=== PATIENT | male | born 1965 | race Caucasian/White ===

== ENCOUNTER 2016-10-01 06:21 | Inpatient (IN) | payer MEDICAID ==
[~2016-10-01] VITALS: Ht 177.8 cm; Wt 50.8 kg
[~2016-10-01 06:21] MED LIST: COLACE100 MG PO; FLAGYL500 MG PO; HYDROCHLOROTH12.5 M1 PO; HYDROCODONE-APA1 TAB PO; IBUPROFEN400 MG PO; LEVAQUIN500 MG PO; LEVAQUIN750 MG PO; LISINOPRIL-HCTZ1 T11 PO; MILK OF MAGNESI30 ML PO; NICODERM C1 PATCH .3 TRANSDERM; PHENERGAN25 M1 PO; PROTONIX40 MG PO; ZANAFLEX2 M1 PO; ZESTRIL20 MG PO; ZOFRAN4 MG PO
[2016-10-01] MEDS ORDERED: PERCOCET 10/3251 TA1 PO (07:16)
[2016-10-01] MEDS ORDERED: FLAGYL500 MG PO (07:19)
[2016-10-01] MEDS ORDERED: CLEOCIN HCL300 MG PO (07:19)
[2016-10-01] MEDS ORDERED: VIBRAMYCIN 100100 MG PO (07:20)
[2016-10-01 07:22] VITALS: BP 116/76; BMI 16.1
[2016-10-01 08:04] LABS: CALC OSMOLALITY 275 mosm/kg (275-300); CALCIUM 8.2 mg/dL (8.5-10.1); CARBON DIOXIDE 24.1 mmol/L (21.0-32.0); CHLORIDE - SERUM 104 mmol/L (98-107); CREATININE - SERUM 0.6 mg/dL (0.6-1.3); GLUCOSE 107 mg/dL (74-106); SODIUM 137 mmol/L (136-145); UREA NITROGEN 17 mg/dL (7-18); eGFR NON AFRICAN AMERICAN > 90 mL/min (90-120)
[2016-10-01 08:05] LABS: BASOPHILS 0.3 % (0.0-2.0); EOSINOPHILS 0.8 % (0-7); HEMATOCRIT 27.7 % (42.0-54.0); HEMOGLOBIN 9.4 g/dL (13.5-17.5); IMMATURE GRANULOCYTES 0.8 % (0-5); MCH 34.7 pg (26.0-34.0); MCHC 33.9 g/dL (31.0-37.0); MCV 102.2 fL (80.0-100.0); MEAN PLATELET VOLUME 9.6 fL (7.4-10.4); MONOCYTES 9.5 % (2-11); NEUTROPHILS 79.6 % (40-80); PLATELET COUNT 328 10x3/uL (130-400); RBC 2.71 10x6/uL (4.20-6.10); RDW 22.1 % (11.5-14.5); WBC 21.5 10x3/uL (4.8-10.8)
[2016-10-01 08:09] LABS: INR 1.21 (0.85-1.17); PROTIME 15.2 SECONDS (11.6-15.0)
[2016-10-01 08:10] LABS: APTT 32.8 SECONDS (22.8-39.4)
[2016-10-01 15:21] VITALS: BP 119/79
--- NOTE | 2016-10-01 15:30 | NUR ---
PT RECIEVED TO ROOM 2236 FROM RECOVERY ROOM AROUSES TO VERBAL STIMULI HAS TREVOR DRAIN X 2 NOTED TO ABDOMEN WELL IR DRAIN TO COCCYX/HIP LEFT HIP. LUNGS CLEAR BILATERALLY NO BOWEL SOUNDS NOTED AT THIS TIME HAS STOMA TO MIDLINE WITH BAG IN PLACE. VS WNL
[2016-10-01 15:48] VITALS: BP 125/85
--- NOTE | 2016-10-01 18:31 | NUR ---
MEAT DRESSER SET UP AT THIS TIME BOLUSED 0.4 MG OF DILAUDID FOR LOADING DOSE
[2016-10-01 19:00] VITALS: BP 117/72
--- NOTE | 2016-10-01 20:30 | NUR ---
AROUSES TO VERBAL STIMULI. ALERT ORIENTED. NG TO RIGHT NARE INTACT TO LOW INTERMITTENT SUCTION WITH DARK GREEN DRAINAGE NOTED. HAS BILATEAL TREVOR DRAINS TO ABDOMEN.COMPRESSED AND DRAINING BRIGHT RED DRAINAGE.HAS STOMA TO MIDABDOMEN WITH DRAINAGE BAG INTACT. NO DRAINAGE NOTED. IR DRAIN WITH BROWN DRAINAGE NOTED TO BAG.MIDLINE DRSG INTACT WITHOUT DRAINAGE NOTED. IV INFUSING TO RIGHT PORT WIHTOUT REDNESS OR EDEMA NOTED TO SITE,REFRIGERATION SPECIALIST DILAUDID IN USE FOR PAIN CONTRO. OROZCO PATENT AND DRAINING CLEAR YELLOW URINE.CL IN REACH. .OROZCO PATENT DRAINGING CLEAR YELLOW URINE.
[2016-10-02] VITALS (10 sets, daily range): BP systolic 88–104; BP diastolic 58–73; Ht 177.8 cm; Wt 50.8 kg
--- NOTE | 2016-10-02 00:10 | NUR ---
AWAKE ALERT. NO COMPLAINTS VOICED. CL IN REACH.
--- NOTE | 2016-10-02 04:13 | NUR ---
EYES CLOSED RESP EVEN AND UNALBORED. NO DISTRESS NOTED. CL IN REACH
--- NOTE | 2016-10-02 04:58 | NUR ---
PT REMAINS ASLEEP WITH EASY RESPIRATIONS. NO DISTRESS NOTED. NG TUBE IN PLACE AND FLOEY IN PLACE. BED IS LOW, RAILS UP X'S 2 WITH THE CALL LIGHT AT HAND.
[2016-10-02 06:59] LABS: BASOPHILS 0.1 % (0.0-2.0); EOSINOPHILS 0 % (0-7); HEMOGLOBIN 8.2 g/dL (13.5-17.5); IMMATURE GRANULOCYTES 2.1 % (0-5); LYMPHOCYTES 5.5 % (15-50); MCH 33.9 pg (26.0-34.0); MCHC 32.8 g/dL (31.0-37.0); MCV 103.3 fL (80.0-100.0); MEAN PLATELET VOLUME 9.6 fL (7.4-10.4); MONOCYTES 8.7 % (2-11); NEUTROPHILS 83.6 % (40-80); PLATELET COUNT 468 10x3/uL (130-400); RBC 2.42 10x6/uL (4.20-6.10); RDW 21.9 % (11.5-14.5); WBC 43.1 10x3/uL (4.8-10.8)
[2016-10-02 07:31] LABS: CALC OSMOLALITY 277 mosm/kg (275-300); CALCIUM 8.2 mg/dL (8.5-10.1); CARBON DIOXIDE 22.5 mmol/L (21.0-32.0); CHLORIDE - SERUM 104 mmol/L (98-107); GLUCOSE 127 mg/dL (74-106); MAGNESIUM - SERUM 1.2 mg/dL (1.8-2.4); PHOSPHOROUS 5.4 mg/dL (2.5-4.9); SODIUM 137 mmol/L (136-145); UREA NITROGEN 18 mg/dL (7-18)
[2016-10-02 07:33] LABS: CREATININE - SERUM 0.9 mg/dL (0.6-1.3); POTASSIUM - SERUM 4.1 mmol/L (3.5-5.1); eGFR NON AFRICAN AMERICAN > 90 mL/min (90-120)
--- NOTE | 2016-10-02 08:00 | NUR ---
RESTING WITHOUT NEEDS.CALL LIGHT IN REACH
--- NOTE | 2016-10-02 08:00 | NUR ---
PT ASSESSMENT COMPLETE AROUSES TO VERBAL STIMULI TREVOR DRAINS X2 NOTED TO ABDOMEN STOMA NOTED TO MIDLINE WITH DRAINAGE BAG ATTACHED NO DRAINAGE NOTED TO BAG HAS IR DRAIN TO INTERNAL ABCESS IN LEFT HIP SUTURED IN PLACE. PATENT TO DARK BROWN DRAINAGE HAS SEROSANGUANOUS DRAINAGE NOTED AROUND INSERTION SITE. DRESSING CHANGED AT INSERTION SITE. TREVOR DRAINS PATENT TO SANGUANOUS DRAINAGE MORE NOTED TO LEFT DRAIN THAN RIGHT DRAIN. NGT NOTED TO RIGHT NARE PATENT TO GREEN BROWN FLUID TO LIS WALL SUCTION. ORAL CARE PROVIDED. WILL MONITOR. B/P THIS AM WAS 74/40 ON FIRST CHECK RECHECK AFTER REPOSITION TO BACK WAS 90/44 WILL MONITOR.
--- NOTE | 2016-10-02 10:00 | NUR ---
DR THOMPSON ROUNDS NEW ORDERS RECIEVED NO ACUTE DISTRESS NTOED AT THIS TIME PT AWAKE AND ALERT NEW DRESSING APPLIED TO IR DRAIN SITE STILL NO OUTPUT NOTED TO STOMA
--- NOTE | 2016-10-02 13:15 | OP ---
PATIENT NAME: JANIS TORREZ MEDICAL RECORD: [id number] :67 LOCATION:[id number] ADMISSION DATE:10/01/16 SURGEON: MAXI THOMPSON MD DATE OF OPERATION: 10/01/2016 PREOPERATIVE DIAGNOSES: 1. Metastatic rectal cancer. 2. 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 3. Tobacco dependence syndrome. 4. Hypertension. 5. Anastomotic leak with intraabdominal abscess. 6. Anemia of chronic disease. 7. Protein deficient malnutrition. POSTOPERATIVE DIAGNOSES: 1. Metastatic rectal cancer. 2. 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 3. Tobacco dependence syndrome. 4. Hypertension. 5. Anastomotic leak with intraabdominal abscess. 6. Anemia of chronic disease. 7. Protein deficient malnutrition. PROCEDURES: 1. Laparoscopic converted to open, lysis of adhesions. 2. Transverse loop colostomy revision. 3. Drainage of intraabdominal abscesses times 2. 4. Repair of LAR anastomosis. 5. Repair of iatrogenic small bowel injury. 6. Repair of the small bowel deserosalizations. SURGEON: Maxi Thompson MD REPORT OF PROCEDURE: The patient's abdomen was prepped and draped in sterile fashion. A Veress needle was inserted in the left upper quadrant and the abdomen was insufflated. An attempt was made to pass a 5-mm Visiport trocar into the left lateral lower abdomen. Upon performing this, I could see the lumen of the patient's small bowel, pulled out this trocar and placed it a little bit further up in the patient's left upper quadrant. At this time, I was able to get into the abdominal cavity. I could see the Veress needle and saw no sign of any injury to bowel or surrounding structures. We then were able to clear off an area on the right side of the abdomen through some thin adhesions and placed 2 separate 5-mm trocars in the right lateral abdomen. With these trocars in place, I was able to dissect down the adhesions present on the patient's left lateral abdomen. I knew there was an injury to the small bowel, but I can never see it laparoscopically. For this reason, I performed a midline incision. With this midline incision, I was able to take down the remainder of the adhesions in the patient's pelvis and bilateral lower quadrants. I was able to see the small bowel enterotomy. This was repaired in 2 layers with interrupted 3-0 Vicryls and interrupted Lemberted 3-0 silks. The injury itself was less than a centimeter in size. There were a couple of the deserosalizations during this portion of the procedure and these were treated with Lemberted 3-0 silks. We saw no other evidence of any injury to the bowel or surrounding structures. As we penetrated in the patient's pelvis, there was a large abscess cavity present which we already knew of which had a drain in OPERATIVE REPORT [id number] JANIS TORREZ. There was purulent material encountered. This was irrigated out with peroxide and saline solution. The patient had another separate abscess cavity in the right lower quadrant with a piece of bowel that was adherent to it. As we took this down, there was a spillage of pus and the abscess cavity was actually extending up into the patient's subcutaneous space into the musculature. A 15-Lithuanian Reagan drain was inserted into this space and the space was actually closed up after they have been irrigated out with peroxide and saline solution. This was closed with interrupted 3-0 Prolene. The drain was then sutured into place with a 3-0 Prolene. As we approached the patient's indwelling loop transverse colostomy, this was prolapsing and for this reason, we put some tacking sutures of the colon to the patient's fascia using interrupted 3-0 Vicryls and 3-0 Prolenes. At this point, there was no further evisceration and prolapse of the transverse colostomy. We then went back down to the patient's pelvis. The patient's previous anastomosis had fallen apart with only the anterior aspect staying intact. I placed a rigid proctoscope through the anus and through the anastomotic site and used this as a guide. I was able to reapproximate the edges of the anastomosis using interrupted 3-0 Vicryls. There was good approximation of the tissue at this point. We then placed a 19-Lithuanian Reagan drain into the pelvis through the left lower quadrant and sutured it into place with a 2-0 Prolene. The abdomen was then irrigated out one last time with saline solution and care was taken to make sure that there was no sign of any bleeding or bile leakage. At this point, the midline fascia was closed with running #1 loop PDS times 2. The skin was then closed with greg. COMPLICATIONS: None. CONDITION: Stable. ANESTHESIA: General endotracheal. BLOOD LOSS: 100 mL. TRANSINT:[id number] Voice Confirmation ID: [id number] DOCUMENT ID: [id number] MAXI THOMPSON MD at 1315 CC: COMFORT ROCHA MD and TRENA WYATT M.D. [id number] DICTATION DATE: 10/01/16 1414 QUARRY WORKER: 10/01/16 1455 ADM IN [place] [id number] [place] [id number]
--- NOTE | 2016-10-02 20:13 | NUR ---
PT IS RESTING IN BED WITH EYES OPEN. ALERT AND ORIENTED X 3. DENIES ACUTE DISCOMFORT AT THIS TIME. DRESSING TO MIDLINE ABDOMEN IS CDI. LIA TREVOR DRAINS INTACT. IR DRAIN TO LEFT HIP IS INTACT. RIGHT CHEST INFUSAPORT INFUSING WITHOUT DIFFICULTY. LEFT FOREARM IV INFUSING. NO REDNESS OR EDEMA NOTED AT THE INSERTION SITE. OROZCO CATH IS PATENT AND DRAINING TO A GRAVITY BAG. NG TO INTACT TO LIS. SR'S ARE UP X 3 IN BED. CALL LIGHT AND BEDSIDE TABLE ARE WITHIN EASY REACH.
--- NOTE | 2016-10-02 22:05 | NUR ---
1ST UNIT OF PRBC'S HUNG AT THIS TIME. VSS. NO ADVERSE REACTION NOTED.
--- NOTE | 2016-10-02 23:43 | NUR ---
PT IS RESTING IN BED WITH EYES CLOSED. NO DISTRESS NOTED. BLOOD INFUSING WITHOUT DIFFICULTY. NO ADVERSE REACTIONS NOTED. VSS.
[2016-10-03] VITALS (15 sets, daily range): BP systolic 105–126; BP diastolic 73–86
--- NOTE | 2016-10-03 01:46 | NUR ---
PT RESTING IN BED WITH EYES OPEN. NO NEEDS VOICED. BLOOD INFUSING WITHOUT DIFFICULTY. NO ADVERSE REACTIONS NOTED.
--- NOTE | 2016-10-03 02:00 | NUR ---
1ST UNIT OF BLOOD FINISHED. NO ADVERSE REACTIONS NOTED.
--- NOTE | 2016-10-03 02:10 | NUR ---
2ND UNIT OF BLOOD STARTED AT THIS TIME. VSS. NO ADVERSE REACTION NOTED.
--- NOTE | 2016-10-03 03:40 | NUR ---
PT IS RESTING QUIETLY IN BED WITH EYES CLOSED. NO DISTRESS NOTED. BLOOD INFUSING. NO DISTRESS NOTED. VSS.
--- NOTE | 2016-10-03 05:00 | NUR ---
SECOND UNIT OF BLOOD FINISHED AT THIS TIME. VSS. NO ADVERSE REACTIONS NOTED.
--- NOTE | 2016-10-03 06:56 | NUR ---
PT RESTING IN BED WITH EYES OPEN. NO NEEDS VOICED.
[2016-10-03 07:06] LABS: BASOPHILS 0.1 % (0.0-2.0); EOSINOPHILS 0.1 % (0-7); HEMATOCRIT 24.2 % (42.0-54.0); HEMOGLOBIN 8.2 g/dL (13.5-17.5); IMMATURE GRANULOCYTES 1.3 % (0-5); LYMPHOCYTES 8.1 % (15-50); MCH 32.5 pg (26.0-34.0); MCHC 33.9 g/dL (31.0-37.0); MEAN PLATELET VOLUME 9.7 fL (7.4-10.4); NEUTROPHILS 79.4 % (40-80); PLATELET COUNT 316 10x3/uL (130-400); RBC 2.52 10x6/uL (4.20-6.10); RDW 21.4 % (11.5-14.5); WBC 27.1 10x3/uL (4.8-10.8)
--- NOTE | 2016-10-03 07:12 | NUR ---
AWAKE ALERT REQ N/G CANISTER BE EMPTIED 1100CC DARK GREEN LIQ IN CANISTER AT PRESENT IP AND RTFA IV INTACT AT PRESENT OSTOMY BAG IN PLACE SCANT DRAINAGE NOTED AT PRESENT.
[2016-10-03 07:23] LABS: CALC OSMOLALITY 281 mosm/kg (275-300); CALCIUM 8.4 mg/dL (8.5-10.1); CARBON DIOXIDE 25.1 mmol/L (21.0-32.0); CHLORIDE - SERUM 108 mmol/L (98-107); GLUCOSE 102 mg/dL (74-106); POTASSIUM - SERUM 3.8 mmol/L (3.5-5.1); SODIUM 140 mmol/L (136-145); UREA NITROGEN 21 mg/dL (7-18)
[2016-10-03 07:28] LABS: CREATININE - SERUM 0.4 mg/dL (0.6-1.3); MAGNESIUM - SERUM 1.7 mg/dL (1.8-2.4); PHOSPHOROUS 2.1 mg/dL (2.5-4.9); eGFR NON AFRICAN AMERICAN > 90 mL/min (90-120)
--- NOTE | 2016-10-03 09:00 | NUR ---
CONT AT BEDSIDE PITTING MACHINE OPERATOR IN PLACE AT PRESENT.
--- NOTE | 2016-10-03 11:00 | NUR ---
DSG TO LEFT HIP CHGD AMBER OLD THICK DRAINAGE NOT FOUL -SMELLING.
--- NOTE | 2016-10-03 13:00 | NUR ---
SITTING UP ON SIDE OF [place]WELL AT PRESENT.
--- NOTE | 2016-10-03 15:00 | NUR ---
WATCHING TV QUIETLY AT PRESENTN/C VOICED.
--- NOTE | 2016-10-03 17:00 | NUR ---
REPOSITIONED FOR COMFORT AT PRESENT DENIES ANY NEEDS PJ 1AND 2 AND T-BILE EMPTIED OSTOMY BAG IN PLACE SCANT AMT OF DRAINAGE NOTED AT PRESENT.MID LINE DSG IN PLACE AT PRESENT N/C.N/G CONT WITH DARK GREEN DRAINAGE NOTED .
--- NOTE | 2016-10-03 19:00 | NUR ---
QUIET IN ROOM AT PRESENT DENIES ANY NEEDS AT THIS TIME.CONT NPO EXCEPT ICE CHIPS.
[2016-10-04] VITALS: BP 117/82
--- NOTE | 2016-10-04 02:41 | NUR ---
PT IS RESTING QUIET WITH NO DISTRESS NOTED. HER RESPIRATIONS ARE EASY AND SHE SEEMS TO BE ASLEEP. THE BED IS LOW, RAILS UP X'S 2 WITH THE CALL LIGHT AT HAND.
[2016-10-04 04:00] VITALS: BP 137/94
--- NOTE | 2016-10-04 07:55 | NUR ---
RECIEVED PATIENT DURING WALKING ROUNDS. PATIENT LYING IN BED WITH EVEN RESPIRATIONS. NO SIGNS OF DISTRESS NOTED. ASSESSMENT DONE PER FLOW SHEET. BED IN LOW POSITION AND CALL LIGHT WITHIN REACH. WILL CONTINUE TO MONITOR.
[2016-10-04 08:24] VITALS: BP 138/97
[2016-10-04 11:52] VITALS: BP 124/87
--- NOTE | 2016-10-04 12:17 | NUR ---
PATIENT IN BED EYES CLOSED RESTING QUIETLY. NO COMPLAINTS OR SIGNS OF DISTRESS. CALL LIGHT WITHIN REACH.
[2016-10-04 16:27] VITALS: BP 132/89
[2016-10-04 19:00] VITALS: BP 136/85
--- NOTE | 2016-10-04 19:50 | NUR ---
RECIEVED PT LYING IN BED WATCHING TV, IN ROOM, ASSESSMENT COMPLETED, TREVOR DRAINS X2, BILI DRAIN , OROZCO AND NG TUBE ALL IN PLACE, CL IN REACH, NO ACUTE DISTRESS NOTED, DENIES NEEDS AT THIS TIME, WILL MONITOR
--- NOTE | 2016-10-05 01:42 | NUR ---
PROCALAMINE HUNG PER MAR, AMBER WELL, DENIES NEEDS, AT BEDSIDE, CL IN REACH
--- NOTE | 2016-10-05 03:22 | NUR ---
MEDS HUNG PER MAR, AMBER WELL, DENIES PAIN OR NEEDS, CL IN REACH
[2016-10-05 04:00] VITALS: BP 135/94
--- NOTE | 2016-10-05 07:40 | NUR ---
RECIEVED PT DURING WALKING ROUNDS. PT RESTING COMFORTABLY IN BED WITH NO COMPLAINTS OF PAIN OR DISCOMFORT AT THIS TIME. ASSESSMENT DONE PER FLOWSHEET. BED IN LOW POSITION AND CALL LIGHT WITHIN REACH. WILL CONTINUE TO MONITOR.
--- NOTE | 2016-10-05 09:00 | NUR ---
LYING IN BED,WITHOUT DISTRESS. AT SIDE.CALL LIGHT IN REACH
--- NOTE | 2016-10-05 10:19 | NUR ---
Patient Name: JANIS TORREZ Admission Status: Elective Accout number: [id number] Admission Date: 10-01-2016 : 1965 Admission Diagnosis:OTH POSTPROCEDURAL COMPLICATIONS AND DISORDERS OF DGSTV Attending: SHARYN Current LOS: 4 Anticipated DC Date: 10-08-2016 Planned Disposition: Home with Home Health Primary [facility] [employer] [place] Discharge Planning Comments: CM MET WITH PATIENT REGARDING D/C NEEDS AND PLANS. PATIENT STATED HIS EX- ALEXANDER LIVES WITH HIM AND WILL DRIVE HIM HOME AT DISCHARGE. PATIENT HAS A RAMP TO ENTER HIS HOME AND NO STAIRS INSIDE. PATIENTS EX- HELPS HIM DRESS AND WITH HIS BATH. PATIENT HAS A WHEELCHAIR AND WALKER AT HOME. [facility]. CM WILL CONTINUE TO FOLLOW PATIENT WITH D/C NEEDS AND PLANS. PCP DR. WYATT [facility]- [phone] [place] - [phone] Meat Clerk: Lala Lawson Is the patient Alert and Oriented? Yes 0 * How many steps to enter\exit or inside your home? RAMP 0 * PCP Y[facility]IN 0 * Pharmacy [facility] 0 * Preadmission Environment Home with Family 0 * ADLs Partial Dependent 0 * Partial ADLs (Assistance needed) Bathing Dressing 0 * Equipment Walker Wheelchair 0 * List name and contact numbers for known caregivers / representatives who currently or will assist patient after discharge: ALEXANDER (EXWIFE) [phone] 0 * Community resources currently utilized Home Health 0 * Please name any agencies selected above. [facility] 0 * Additional services required to return to the preadmission environment? Yes 0 * Can the patient safely return to the preadmission environment? Yes 0 * Has this patient been hospitalized within the prior 30 days at any hospital? No 0 Grand Total: 0
[2016-10-05 10:20] VITALS: BP 130/87
--- NOTE | 2016-10-05 10:40 | NUR ---
SPOKE WITH PT AND AT THIS TIME ABOUT CONCERNS THEY WERE HAVING ABOUT CARE THROUGHOUT THE NIGHT. REPORTED PT COMPLAINT TO AMBER STEINBERG, NURSE CEMENT TRUCK DRIVER. PT RESTING COMFORTABLY AT THIS TIME. BED IN LOW POSITION AND CALL LIGHT WITHIN REACH. WILL CONTINUE TO BOWEN.
[2016-10-05 11:09] LABS: BASOPHILS 0.1 % (0.0-2.0); EOSINOPHILS 0.4 % (0-7); HEMOGLOBIN 7.9 g/dL (13.5-17.5); IMMATURE GRANULOCYTES 0.5 % (0-5); LYMPHOCYTES 16.1 % (15-50); MCH 32.9 pg (26.0-34.0); MCHC 32.9 g/dL (31.0-37.0); MEAN PLATELET VOLUME 9.6 fL (7.4-10.4); MONOCYTES 11.6 % (2-11); NEUTROPHILS 71.3 % (40-80); PLATELET COUNT 312 10x3/uL (130-400); RDW 20.8 % (11.5-14.5); WBC 14.1 10x3/uL (4.8-10.8)
[2016-10-05 11:24] LABS: CALC OSMOLALITY 280 mosm/kg (275-300); CALCIUM 8.1 mg/dL (8.5-10.1); CHLORIDE - SERUM 102 mmol/L (98-107); CREATININE - SERUM 0.4 mg/dL (0.6-1.3); GLUCOSE 88 mg/dL (74-106); MAGNESIUM - SERUM 1.7 mg/dL (1.8-2.4); PHOSPHOROUS 2.3 mg/dL (2.5-4.9); POTASSIUM - SERUM 3.6 mmol/L (3.5-5.1); SODIUM 141 mmol/L (136-145); UREA NITROGEN 14 mg/dL (7-18); eGFR NON AFRICAN AMERICAN > 90 mL/min (90-120)
--- NOTE | 2016-10-05 12:38 | NUR ---
PT GIVEN MAGNESIUM RIDER PER ORDER AT THIS TIME DUE TO MAGNESIUM LEVEL OF 1.7. BED IN LOW POSITION AND CALL LIGHT WITHIN REACH. WILL CONTINUE TO MONITOR.
[2016-10-05 13:50] VITALS: BP 135/89
--- NOTE | 2016-10-05 14:45 | NUR ---
NUTRITION MONITORING & EVAL CHART REVIEWED. PT TO START TPN @ 70 CC/HR. 20% INTRALIPIDS//250 CC Q 48 HOURS. TPN AND LIPIDS PROVIDING 1965 KCAL, [address] FOLLOWING
[2016-10-05 16:58] VITALS: BP 115/65
--- NOTE | 2016-10-05 20:03 | NUR ---
RECIEVED PT SITTING UP IN BED TALKING ON PHONE, ASSESSMENT COMPLETED, NO ACUTE DISTRESS NOTED, DENIES NEEDS, CL IN REACH, WILL MONITOR
[2016-10-05 21:00] VITALS: BP 138/80
--- NOTE | 2016-10-06 00:27 | NUR ---
GENO GRIFFITHS PER MAR, AMBER WELL, CL IN REACH
[2016-10-06 01:00] VITALS: BP 140/68
--- NOTE | 2016-10-06 01:20 | NUR ---
PT C/O FEELING LIKE HE NEEDED TO URINATE, OROZCO ASSESSED, EMPTIED CANISTER AND FLUSHED, IMMEDIATE RETURN OF APPROX 400 CC URINE, PT REPORTS "PRESSURE EASING UP", WILL CONTINUE TO MONITOR, CL IN REACH
[2016-10-06 05:00] VITALS: BP 133/103
[2016-10-06 06:30] LABS: BASOPHILS 0.2 % (0.0-2.0); EOSINOPHILS 1.1 % (0-7); HEMATOCRIT 27.1 % (42.0-54.0); HEMOGLOBIN 8.9 g/dL (13.5-17.5); IMMATURE GRANULOCYTES 0.8 % (0-5); LYMPHOCYTES 12.5 % (15-50); MCH 33.2 pg (26.0-34.0); MCHC 32.8 g/dL (31.0-37.0); MCV 101.1 fL (80.0-100.0); MEAN PLATELET VOLUME 9.7 fL (7.4-10.4); MONOCYTES 9.3 % (2-11); NEUTROPHILS 76.1 % (40-80); RBC 2.68 10x6/uL (4.20-6.10); RDW 20.1 % (11.5-14.5)
[2016-10-06 06:55] LABS: CARBON DIOXIDE 37.2 mmol/L (21.0-32.0); CHLORIDE - SERUM 98 mmol/L (98-107); CREATININE - SERUM 0.4 mg/dL (0.6-1.3); PLATELET COUNT 390 10x3/uL (130-400); POTASSIUM - SERUM 3.6 mmol/L (3.5-5.1); SODIUM 135 mmol/L (136-145); eGFR NON AFRICAN AMERICAN > 90 mL/min (90-120)
[2016-10-06 06:56] LABS: CALC OSMOLALITY 270 mosm/kg (275-300); GLUCOSE 134 mg/dL (74-106); PHOSPHOROUS 3.1 mg/dL (2.5-4.9); UREA NITROGEN 10 mg/dL (7-18)
[2016-10-06 08:22] VITALS: BP 136/98
--- NOTE | 2016-10-06 08:45 | NUR ---
SCHEDULED MEDICATIONS ADMINISTERED AT THIS TIME. ASSESSMENT PERFORMED PER FLOWSHEET WELL OROZCO CARE WITH OROZCO WIPES. IV TO RIGHT UPPER ARM PATENT WITH NS @10ML/HR AND RIGHT CHEST PORT PATENT WITH TPN AT 70 ML/HR. OROZCO PATENT AND DRAINING TO GRAVITY WITH SEDIMENT NOTED TO CASSETTE. AT BEDSIDE. WEIGHTS AND MEASURES SEALER IN USE FOR PAIN CONTROL. ALERT AND ORIENTED X4. NG TUBE PATENT TO RIGHT NARE WITH SECUREMENT DEVICE REPLACED. NG TUBE DRAINING DARK, GREEN OUTPUT TO LOW INTERMITTENT WALL SUCTION. TREVOR DRAIN X2 PATENT WITH RIGHT SIDE BLOODY DRAINAGE AND LEFT SIDE SEROUS. BILI DRAIN PATENT WITH BROWN DRAINAGE PRESENT. DRESSING TO MIDLINE C/D/I AND COLOSTOMY BAG IN PLACE WITH NO OUTPUT. CALL LIGHT IN REACH, WILL CONTINUE WITH PLAN OF CARE.
--- NOTE | 2016-10-06 10:30 | NUR ---
AMBULATED 250 FT IN HALLWAY WITH PHYSICAL THERAPY AT THIS TIME. CHANGING PATIENT'S BED LINENS.
[2016-10-06 11:47] VITALS: BP 122/84
--- NOTE | 2016-10-06 12:30 | NUR ---
ELECTRICAL CAD TECHNICIAN SYRINGE REFILLED AT THIS TIME PER ORDER. PT DENIES FURTHER NEEDS. LEFT TREVOR DRAIN, #1, EMPTIED AND 45ML OF BLOODY FLUID. CALL LIGHT IN REACH.
--- NOTE | 2016-10-06 16:00 | NUR ---
OROZCO D/C WITH CATH TIP INTACT. PROVIDED PT WITH URINAL AND POPSICLE. DENIES FURTHER NEEDS. WILL CONTINUE WITH PLAN OF CARE.
[2016-10-06 16:21] VITALS: BP 143/98
[2016-10-06 19:00] VITALS: BP 136/95
--- NOTE | 2016-10-06 20:40 | NUR ---
ASSESSMENT COMPLETED, NO ACUTE DISTRESS NOTED, DENIES NEEDS, CL IN REACH, WILL MONITOR
--- NOTE | 2016-10-06 21:46 | NUR ---
TPN BAG CHANGED ALONG WITH TUBING, "BILI" DRAIN FLUSHED WITH 30 CC NS PER ORDERS, NO DISTRESS NOTED, 150 CC URINE EMPTIED FROM URINAL,CL IN REACH
--- NOTE | 2016-10-06 22:40 | NUR ---
ASSESSMENT COMPLETED, NO ACUTE DISTRESS NOTED, DENIES NEEDS AT THIS TIME, CALL LIGHT IN REACH
--- NOTE | 2016-10-06 22:52 | NUR ---
IV GENO GRIFFITHS PER FLORI, AMBER WELL, DENIES NEEDS, CL IN REACH
--- NOTE | 2016-10-07 01:10 | NUR ---
PT C/O "HAVING TO STRAIN TO GET ANYTHING OUT" AND PAIN/PRESSURE TO R SIDE OF ABD, STATES "I FEEL FULL", FULL BLADDER PALPATED IN AND OUT CATH PERFORMED USING STERILE TECHNIQUE, 800 CC CLEAR YELLOW URINE OBTAINED.
[2016-10-07 04:00] VITALS: BP 143/98
[2016-10-07 05:14] LABS: BASOPHILS 0.3 % (0.0-2.0); EOSINOPHILS 1.5 % (0-7); HEMATOCRIT 26.6 % (42.0-54.0); HEMOGLOBIN 8.7 g/dL (13.5-17.5); IMMATURE GRANULOCYTES 0.6 % (0-5); LYMPHOCYTES 14.4 % (15-50); MCH 33.1 pg (26.0-34.0); MCHC 32.7 g/dL (31.0-37.0); MCV 101.1 fL (80.0-100.0); MONOCYTES 14.9 % (2-11); NEUTROPHILS 68.3 % (40-80); PLATELET COUNT 388 10x3/uL (130-400); RBC 2.63 10x6/uL (4.20-6.10); RDW 19.4 % (11.5-14.5); WBC 14.3 10x3/uL (4.8-10.8)
[2016-10-07 05:39] LABS: CALC OSMOLALITY 277 mosm/kg (275-300); CALCIUM 8.5 mg/dL (8.5-10.1); CARBON DIOXIDE 36.7 mmol/L (21.0-32.0); CHLORIDE - SERUM 97 mmol/L (98-107); CREATININE - SERUM 0.5 mg/dL (0.6-1.3); GLUCOSE 132 mg/dL (74-106); MAGNESIUM - SERUM 1.8 mg/dL (1.8-2.4); PHOSPHOROUS 3.7 mg/dL (2.5-4.9); POTASSIUM - SERUM 3.7 mmol/L (3.5-5.1); SODIUM 138 mmol/L (136-145); UREA NITROGEN 12 mg/dL (7-18); eGFR NON AFRICAN AMERICAN > 90 mL/min (90-120)
--- NOTE | 2016-10-07 07:30 | NUR ---
DENIES NEEDS AT THIS TIME. ALERT AND ORIENTED X4. NG TUBE TO RIGHT NARE PATENT AND DRAINING DARK, GREEN OUTPUT. CONSUMER SAFETY OFFICER IN USE FOR PAIN. CALL LIGHT IN REACH, WILL CONTINUE WITH PLAN OF CARE.
[2016-10-07 08:24] VITALS: BP 114/91
--- NOTE | 2016-10-07 09:55 | NUR ---
SCHEDULED ANTIBIOTIC ADMINISTERED AT THIS TIME. IV TO RIGHT UPPER ARM PATENT AT THIS TIME. ASSESSMENT PERFORMED PER FLOWSHEET. ALERT AND ORIENTED X4. MIDLINE DRESSING REMAINS C/D/I. COLOSTOMY TO MIDLINE UPPER ABOMEN REMAINS WITHOUT DRAINAGE. NG TUBE TO RIGHT NARE PATENT AND DRAINING DARK, GREEN OUTPUT. RIGHT AND LEFT TREVOR DRAIN PATENT WELL INTERVENTIONAL DRAIN TO LEFT ABOMEN. CALL LIGHT IN REACH, WILL CONTINUE WITH PLAN OF CARE.
[2016-10-07 12:43] VITALS: BP 117/87
--- NOTE | 2016-10-07 13:00 | NUR ---
DR THOMPSON IN THE ROOM AT THIS TIME. ORDER GIVEN TO PLACE INDWELLING OROZCO CATHETER D/T PT BEING OFF OF FLOMAX AND EXPERIENCING URINARY RETENTION. DRAIN FLUSHED PER ORDER WITH OUTPUT GOING INTO TREVOR DRAIN #1. PROVIDED PT WITH POPSICLE AT HIS REQUEST.
--- NOTE | 2016-10-07 14:25 | NUR ---
DRESSING TO RIGHT UPPER ARM IV CHANGED AT THIS TIME. RIGHT PORT DE-ACCESSED AND RE-ACCESSED WITH 20G 3/4 INCH COLEMAN NEEDLE X1 ATTEMPT IN STERILE FASHION. 16FR OROZCO CATHETER INSERTED STERILY PER ORDER. TPN TUBING CHANGED AT THIS TIME. CALL LIGHT IN REACH, DENIES FURTHER NEEDS. AT BEDSIDE. WILL CONTINUE WITH PLAN OF CARE.
[2016-10-07 16:21] VITALS: BP 138/90
--- NOTE | 2016-10-07 16:30 | NUR ---
20G IV SITED TO PT'S LEFT FOREARM X3 ATTEMPTS. EXISTING IV TO RIGHT UPPER ARM LEAKING AROUND INSERTION SITE. D/C WITH CATH TIP INTACT. AT BEDSIDE. TREVOR DRAINS EMPTIED. DENIES FURTHER NEEDS. WATER REGISTRAR IN USE FOR PAIN. CALL LIGHT IN REACH, WILL CONTINUE WITH PLAN OF CARE.
[2016-10-07 19:00] VITALS: BP 141/97
--- NOTE | 2016-10-07 19:00 | NUR ---
BEDSIDE REPORT RECEIVED AND CARE OF PT ASSUMED. PT LYING IN SEMI VIZCARRA'S POSITION WATCHING TV. RIGHT PORT ACCESSED WITH TPN INFUSING AT AT 70 ML / HR. IV IN LEFT FA PATENT WITH NS INFUSING AT 10 ML /HR AND DILAUDID ADULT SPECIALIST IN USE FOR PAIN CONTROL. OROZCO CATHETER DRAINING TO GRAVITY WITH YELLOW URINE IN COLLECTION BAG. X2 TREVOR DRAINS COMPRESSED WITH BLOODY DRAINAGE IN BULB. BRIDGER DRAIN PATENT WITH SMALL AMOUNT OF BROWNISH DRAINAGE IN BAG. COLOSTOMY MID ABDOMEN WITH SMALL AMOUNT OF BROWNISH DRAINAGE. WILL MONITOR CL[place]LEY FOR NEEDS. CALL LIGHT WITHIN REACH.
--- NOTE | 2016-10-07 20:57 | NUR ---
HS MEDICATIONS GIVEN. DISSOLVED PO MED IN WATER PER PT REQUEST. BLUSHED BRIDGER DRAIN WITH 30 ML NS. EMPTIED LEFT DRAIN OF 35 ML OF BLOODY DRAINAGE. WILL CONTINUE TO MONITOR FOR NEEDS.
--- NOTE | 2016-10-08 03:27 | NUR ---
NEW BAG OF TPN STARTED WITH ALL NEW TUBING.
[2016-10-08 04:00] VITALS: BP 147/93
[2016-10-08 05:29] LABS: BASOPHILS 0.2 % (0.0-2.0); EOSINOPHILS 1.5 % (0-7); HEMATOCRIT 27.2 % (42.0-54.0); HEMOGLOBIN 8.9 g/dL (13.5-17.5); IMMATURE GRANULOCYTES 0.7 % (0-5); LYMPHOCYTES 12.6 % (15-50); MCH 33.3 pg (26.0-34.0); MCHC 32.7 g/dL (31.0-37.0); MCV 101.9 fL (80.0-100.0); MEAN PLATELET VOLUME 9.7 fL (7.4-10.4); MONOCYTES 10.1 % (2-11); NEUTROPHILS 74.9 % (40-80); PLATELET COUNT 443 10x3/uL (130-400); RBC 2.67 10x6/uL (4.20-6.10); RDW 19.6 % (11.5-14.5)
[2016-10-08 06:04] LABS: CALC OSMOLALITY 278 mosm/kg (275-300); CALCIUM 8.6 mg/dL (8.5-10.1); CHLORIDE - SERUM 99 mmol/L (98-107); CREATININE - SERUM 0.5 mg/dL (0.6-1.3); GLUCOSE 121 mg/dL (74-106); MAGNESIUM - SERUM 1.8 mg/dL (1.8-2.4); PHOSPHOROUS 3.7 mg/dL (2.5-4.9); POTASSIUM - SERUM 3.2 mmol/L (3.5-5.1); SODIUM 139 mmol/L (136-145); UREA NITROGEN 12 mg/dL (7-18); VANCOMYCIN - TROUGH 20.7 ug/mL (10.0-20.0); eGFR NON AFRICAN AMERICAN > 90 mL/min (90-120)
[2016-10-08 06:21] LABS: WBC 18.3 10x3/uL (4.8-10.8)
--- NOTE | 2016-10-08 07:50 | NUR ---
PATIENT IN SEMIFOWLERS POSITION WITH EYES OPEN, TALKING WITH AT BEDSIDE. ASSESSMENT COMPLETED AT THIS TIME. NO NEEDS VOICED.
[2016-10-08 08:35] VITALS: BP 130/94
[2016-10-08 12:48] VITALS: BP 119/84
--- NOTE | 2016-10-08 14:44 | NUR ---
SPOKE WITH DR THOMPSON ABOUT THRUSH. NEW ORDERS RECEIVED.
[2016-10-08 16:37] VITALS: BP 136/91
[2016-10-08 22:41] VITALS: BP 143/73
[2016-10-09] VITALS: BP 142/95
--- NOTE | 2016-10-09 03:30 | NUR ---
PT RESTING QUIETLY, EYES CLOSED. RESP UNLABORED. NO DISTRESS NOTED. WILL CONTINUE TO MONITOR.
[2016-10-09 06:07] VITALS: BP 121/90
[2016-10-09 06:46] LABS: BASOPHILS 0.3 % (0.0-2.0); EOSINOPHILS 1.8 % (0-7); HEMATOCRIT 25.4 % (42.0-54.0); HEMOGLOBIN 8.1 g/dL (13.5-17.5); IMMATURE GRANULOCYTES 0.5 % (0-5); LYMPHOCYTES 11.2 % (15-50); MCH 32.9 pg (26.0-34.0); MCHC 31.9 g/dL (31.0-37.0); MCV 103.3 fL (80.0-100.0); MEAN PLATELET VOLUME 10.1 fL (7.4-10.4); MONOCYTES 11.3 % (2-11); NEUTROPHILS 74.9 % (40-80); PLATELET COUNT 407 10x3/uL (130-400); RBC 2.46 10x6/uL (4.20-6.10); RDW 19.9 % (11.5-14.5); WBC 19.2 10x3/uL (4.8-10.8)
[2016-10-09 07:05] LABS: CALCIUM 8.3 mg/dL (8.5-10.1); CARBON DIOXIDE 32.8 mmol/L (21.0-32.0); CHLORIDE - SERUM 101 mmol/L (98-107); CREATININE - SERUM 0.5 mg/dL (0.6-1.3); GLUCOSE 108 mg/dL (74-106); MAGNESIUM - SERUM 1.9 mg/dL (1.8-2.4); PHOSPHOROUS 3.4 mg/dL (2.5-4.9); SODIUM 137 mmol/L (136-145); eGFR NON AFRICAN AMERICAN > 90 mL/min (90-120)
[2016-10-09 07:06] LABS: CALC OSMOLALITY 275 mosm/kg (275-300); POTASSIUM - SERUM 3.8 mmol/L (3.5-5.1); UREA NITROGEN 16 mg/dL (7-18)
--- NOTE | 2016-10-09 08:09 | NUR ---
SCHEDULED MEDICATIONS ADMINISTERED AT THIS TIME. ASSESSMENT PERFORMED PER FLOWSHEET. RIGHT PORT PATENT WITH TPN INFUSING AT 70ML/HR. LEFT FOREARM PATENT WITH NS @10ML/HR AND CULLET CRUSHER PRESCRIBED. TREVOR TO BILATERAL LOWER ABDOMEN PATENT, WELL DRAIN TO LEFT SIDE. OROZCO PATENT AND DRAINING TO GRAVITY. DENIES NEEDS AT PRESENT TIME. CALL LIGHT IN REACH, WILL CONTINUE WITH PLAN OF CARE.
[2016-10-09 08:31] VITALS: BP 122/88
--- NOTE | 2016-10-09 09:59 | NUR ---
SCHEDULED MEDICATIONS ADMINISTERED AT THIS TIME. OROZCO CARE PROVIDED WITH OROZCO CARE WIPES. PT TOLERATED WITHOUT COMPLAINTS. PT C/O HEADACHE X3 DAYS. WOULD LIKE THE PHYSICIAN CALLED TO SEE IF HE MAY HAVE SOME TYLENOL. COLOSTOMY BAG BEGINNING TO FILL. WILL FIND A NEW APPLIANCE TO REPLACE THE EXISTING. CALL LIGHT IN REACH, WILL CONTINUE WITH PLAN OF CARE.
[2016-10-09 11:36] VITALS: BP 118/83
--- NOTE | 2016-10-09 14:25 | NUR ---
OSTOMY CARE PROVIDED AT THIS TIME. EXISTING APPLIANCE REMOVED. OSTOMY SITE CLEANED WITH WARM WASH RAGS AND PAT DRY. SKIN PREP USED AROUND WU-STOMAL AREA. NEW APPLIANCE PLACED OVER COLOSTOMY AND NO LEAKS PRESENT. BILATERAL TREVOR DRAIN DRESSING REMOVED, SITES CLEANSED WITH SAF WOUND CLEANSER AND PAT DRY. NEW DRAIN SPONGES APPLIED TO BILATERAL TREVOR SITES. DRESSING TO MIDLINE INCISION REMOVED. INCISION WELL APPROXIMATED WITH CECILIO INTACT AND NO S/S OF INFECTION. AREA CLEANSED WITH SAF WOUND CLEANSER AND PAT DRY. NEW AQUACEL AG DRESSING PLACED OVER INCISION SITE. OROZCO CATHETER AND TREVOR DRAING EMPTIED. PT DENIES FURTHER NEEDS. WILL CONTINUE WITH PLAN OF CARE.
--- NOTE | 2016-10-09 15:09 | NUR ---
NUTRITION MONITORING & EVAL CHART REVIEWED. DIET ADVANCED TO FULL LIQUID. TPN TO TAPER AND DC. RD FOLLOWING
[2016-10-09 15:30] VITALS: BP 114/74
--- NOTE | 2016-10-09 20:09 | NUR ---
PT IS A&OX4 RESTING IN BED WATCHING TV. PT DENIES NEEDS AT THIS TIME. BED LOW. CL IN REACH.
[2016-10-09 20:20] VITALS: BP 118/87
[2016-10-10 00:36] VITALS: BP 128/91
[2016-10-10 04:34] VITALS: BP 126/90
[2016-10-10 05:53] LABS: HEMATOCRIT 24.7 % (42.0-54.0); HEMOGLOBIN 7.8 g/dL (13.5-17.5); MCH 32.9 pg (26.0-34.0); MCHC 31.6 g/dL (31.0-37.0); MCV 104.2 fL (80.0-100.0); MEAN PLATELET VOLUME 9.7 fL (7.4-10.4); PLATELET COUNT 401 10x3/uL (130-400); RBC 2.37 10x6/uL (4.20-6.10); RDW 20.1 % (11.5-14.5); WBC 20.3 10x3/uL (4.8-10.8)
[2016-10-10 06:17] LABS: EOSINOPHILS 1 % (0-7); LYMPHOCYTES 14 % (15-50); MONOCYTES 9 % (2-11); NEUTROPHILS 74 % (40-80); PLATELET ESTIMATE NORMAL
[2016-10-10 06:25] LABS: ALBUMIN 1.7 g/dL (3.4-5.0); ALKALINE PHOSPHATASE 276 U/L (46-116); ALT (SGPT) 12 U/L (10-68); BILIRUBIN - TOTAL 0.69 mg/dL (0.2-1.3); CALC OSMOLALITY 270 mosm/kg (275-300); CALCIUM 8.3 mg/dL (8.5-10.1); CARBON DIOXIDE 29.6 mmol/L (21.0-32.0); CHLORIDE - SERUM 100 mmol/L (98-107); CREATININE - SERUM 0.6 mg/dL (0.6-1.3); GLUCOSE 98 mg/dL (74-106); MAGNESIUM - SERUM 1.7 mg/dL (1.8-2.4); PHOSPHOROUS 2.9 mg/dL (2.5-4.9); POTASSIUM - SERUM 3.8 mmol/L (3.5-5.1); PROTEIN - SERUM 7.1 g/dL (6.4-8.2); SODIUM 135 mmol/L (136-145); UREA NITROGEN 14 mg/dL (7-18); eGFR NON AFRICAN AMERICAN > 90 mL/min (90-120)
--- NOTE | 2016-10-10 07:15 | NUR ---
LYING SUPINE WITH EYES OPEN AND RESPIRATIONS EVEN AND NON LABORED. LAMP INSPECTOR IN USE FOR PAIN CONTROL. DENIES NEEDS AT THIS TIME. WILL CONTINUE WITH PLAN OF CARE.
--- NOTE | 2016-10-10 09:00 | NUR ---
SCHEDULED MEDICATIONS ADMINISTERED AT THIS TIME. ASSESSMENT PERFORMED PER FLOWSHEET. ALERT AND ORIENTED X4. CALL LIGHT IN REACH, WILL CONTINUE WITH PLAN OF CARE.
[2016-10-10 09:30] VITALS: BP 125/88
--- NOTE | 2016-10-10 10:39 | NUR ---
PRN PERCOCET-10 ADMINISTERED AT THIS TIME FOR PAIN. OROZCO CATHETER D/C WITH CATH TIP INTACT. DRESSING MIDLINE ABDOMEN CHANGED PER ORDER. IV SALINE LOCKED EXCEPT FOR IV ANTIBIOTICS. PT DENIES FURTHER NEEDS. WILL CONTINUE WITH PLAN OF CARE.
--- NOTE | 2016-10-10 12:00 | NUR ---
RECREATION COUNSELOR D/C AT THIS TIME PER PHYSICIAN ORDER. IV TO RIGHT CHEST PORT SALINE LOCKED. PT DENIES NEEDS. CALL LIGHT IN REACH, WILL CONTINUE WITH PLAN OF CARE.
[2016-10-10 12:42] VITALS: BP 116/82
--- NOTE | 2016-10-10 14:04 | NUR ---
IR DRAIN FLUSHED AT THIS TIME. PT DENIES NEEDS AT PRESENT TIME. TOLERATING REGULAR DIET WITHOUT DIFFICULTY.
--- NOTE | 2016-10-10 16:08 | NUR ---
SCHEDULED VANC ADMINISTERED AT THIS TIME. DENIES FURTHER NEEDS. WILL CONTINUE WITH PLAN OF CARE.
[2016-10-10 17:22] VITALS: BP 130/88
[2016-10-10 20:00] VITALS: BP 119/78
[2016-10-11] VITALS: BP 136/92
--- NOTE | 2016-10-11 02:35 | NUR ---
PATIENT SLEEPING ON SIDE WITH FAMILY AT BEDSIDE. NO VISUAL SIGNS OF DISTRESS.
[2016-10-11 04:00] VITALS: BP 142/88
[2016-10-11 07:30] LABS: BASOPHILS 0.4 % (0.0-2.0); EOSINOPHILS 2.3 % (0-7); HEMATOCRIT 24.6 % (42.0-54.0); HEMOGLOBIN 7.9 g/dL (13.5-17.5); IMMATURE GRANULOCYTES 0.5 % (0-5); MCH 33.5 pg (26.0-34.0); MCHC 32.1 g/dL (31.0-37.0); MCV 104.2 fL (80.0-100.0); MEAN PLATELET VOLUME 9.5 fL (7.4-10.4); MONOCYTES 9.2 % (2-11); NEUTROPHILS 71.6 % (40-80); PLATELET COUNT 413 10x3/uL (130-400); RBC 2.36 10x6/uL (4.20-6.10); RDW 19.6 % (11.5-14.5); WBC 16.9 10x3/uL (4.8-10.8)
--- NOTE | 2016-10-11 07:40 | NUR ---
PATIENT IS RESTING IN BED. PATIENT IS AWAKE, ALERT, AND ORIENTED X4. ASLEEP IN CHAIR NEXT TO PATIENT'S BED. A YOUNG BOY IS ASLEEP IN THE FLOOR BESIDE PATIENT'S BED. PATIENT REQUESTS HIS PAIN MEDICINE AT PRESENT TIME. PRN PERCOCET IS NOT DUE UNTIL 0818 THIS AM. VERBALIZED THIS TO PATIENT AND PATIENT VERBALIZED UNDERSTANDING. CALL LIGHT IN PATIENT'S REACH. WILL MONITOR PATIENT.
[2016-10-11 08:25] VITALS: BP 137/92
--- NOTE | 2016-10-11 08:36 | NUR ---
PATIENT SITTING UP IN BED WITH FAMILY IN ROOM. ASSESSMENT COMPLETED PER FLOWSHEET. PATIENT COMPLAINS OF PAIN IN HIS BACK AND ABDOMEN. PATIENT RATES PAIN LEVEL A "5" ON A 0-10 SCALE. PRN PERCOCET GIVEN TO PATIENT FOR PAIN. PATIENT TOLERATED WELL. SCHEDULED MORNING MEDICATIONS GIVEN TO PATIENT WITHOUT ANY DIFFICULTIES NOTED. PATIENT REFUSES TO WEAR HIS SCD'S. PATIENT DENIES ANY FURTHER NEEDS AT PRESENT TIME. CALL LIGHT IN PATIENT'S REACH. WILL MONITOR PATIENT.
[2016-10-11] MEDS ORDERED: PERCOCET 10/3251 TA1 PO (09:12)
--- NOTE | 2016-10-11 12:10 | NUR ---
DISCHARGE INSTRUCTIONS VERBALIZED TO PATIENT AND HIS . PATIENT VERBALIZED UNDERSTANDING AND SIGNED DISCHARGE SHEETS. PERCOCET PRESCRIPTION GIVEN TO PATIENT.
--- NOTE | 2016-10-11 12:15 | NUR ---
RIGHT UPPER CHEST PORT FLUSHED WITHOUT ANY PROBLEMS NOTED. COLEMAN NEEDLE REMOVED.NO BLEEDING NOTED. A 2X2 GAUZE WITH A BANDAID APPLIED TO PORT SITE. PATIENT TOLERATED WELL. 10 ML OF BLOODY DRAINAGE EMPTIED FROM PATIENT'S RIGHT ABDOMEN TREVOR DRAIN.
--- NOTE | 2016-10-11 12:25 | NUR ---
PATIENT DISCHARGED VIA WHEELCHAIR TO THE TRUCK. HERE TO DRIVE PATIENT HOME.
--- NOTE | 2016-10-11 15:18 | NUR ---
Late Entry 1300 Patient for discharge to home today. TC to [facility] , his home health provider. CM spoke w/ Jennifer. She notified her superior, Nancy. CM faxed d/c orders, face sheet, d/c summary and surgery procedure note. Also faxed patient's labs and vital sign sheet. Patient will be seen tomorrow, Wednesday, for resumption of care.
--- NOTE | 2016-10-13 13:46 | DS ---
PATIENT:JANIS TORREZ :67 MEDICAL RECORD: [id number] DISCHARGE SUMMARY ADMISSION DATE: 10/01/16 DISCHARGE DATE: 10/11/16 DATE OF ADMISSION: 10/01/2016 DATE OF DISCHARGE: 10/11/2016 ADMISSION DIAGNOSES: 1. Metastatic rectal cancer. 2. Anastomotic leak. 3. Intra-abdominal abscess. 4. Anemia of chronic disease. 5. Protein deficiency malnutrition. 6. Hypertension. 7. Tobacco dependence syndrome. 8. Colostomy prolapse. DISCHARGE DIAGNOSES: 1. Metastatic rectal cancer. 2. Anastomotic leak. 3. Intra-abdominal abscess. 4. Anemia of chronic disease. 5. Protein deficiency malnutrition. 6. Hypertension. 7. Tobacco dependence syndrome. 8. Colostomy prolapse. 9. Postoperative urinary retention. PROCEDURES: 1. Laparoscopic converted to open lysis of adhesions. 2. Transverse loop colostomy revision. 3. Drainage of intra-abdominal abscesses times 2. 4. Repair of low anterior resection anastomosis. 5. Repair of iatrogenic small bowel injury. 6. Repair of small bowel deserosalizations, all done on 10/01/2016. CONSULTATIONS: None. REPORT OF HOSPITALIZATION: The patient was admitted to the hospital after successful surgery. The patient initially had an episode of postoperative anemia, which was treated with 2 units of packed red blood cells. The patient had 2 intra-abdominal abscesses which were drained with external drains placed. The patient was started on vancomycin as cultures had already shown that there were 4 types of bacteria growing from this abscess and all were sensitive to vancomycin. The patient was also started on Flagyl. The patient's white count initially improved. He had a slow course with some postoperative ileus, but once this resolved, the patient was doing quite well. He never had fevers and his vital signs were always stable. He was ambulating. He eventually was tolerating a regular diet. His drain outputs decreased significantly with only one drain in the pelvis having any return. The return of fluid from this was bloody material with no sign of any purulence. At that point, the patient was felt to be stable for discharge home. Two of the drains were removed leaving only the pelvic drain in place. The patient's colostomy was no longer prolapsed and was functioning appropriately. DISCHARGE SUMMARY REPORT [id number] JANIS TORREZ DISCHARGE INSTRUCTIONS: Return to clinic or call if any questions or concerns, fevers, chills, nausea, vomiting or worsening abdominal pain. ACTIVITIES: No heavy lifting or straining for 6 weeks postoperatively. FOLLOWUP: In clinic with my nurse next week and follow up in 2 weeks with me. DISCHARGE MEDICATIONS: Resume all home medications. DISCHARGE DIET: Regular. TRANSINT:[id number] Voice Confirmation ID: [id number] DOCUMENT ID: [id number] HOLLI THOMPSON MD at 1346 CC: COMFORT ROCHA MD and TRENA WYATT M.D. [phone] DICTATION DATE: 10/11/16919 MANUFACTURING DIRECTOR: 10/11/16 1606 DIS IN 10/11/16 [facility] [address] [place] [address]
== END 2016-10-11 12:25 | disposition home health service (06) | DRG 329 ==
LOC: D.SDCHOLD 06:21 → D.MS 06:21 → D.SDCHOLD 08:15 → D.MS 15:21
PROVIDERS: Anesthesiology; ADMIT Surgery
PROC: 0DQL0ZZ Repair Transverse Colon, Open Approach (ICD-10-PCS; principal; 2016-10-01 08:30)
PROC: 0W9G00Z Drainage of Peritoneal Cavity with Drainage Device, Open Approach (ICD-10-PCS; 2016-10-01 08:30)
PROC: 0DQ80ZZ Repair Small Intestine, Open Approach (ICD-10-PCS; 2016-10-01 08:30)
PROC: 0T9B70Z Drainage of Bladder with Drainage Device, Via Natural or Artificial Opening (ICD-10-PCS; 2016-10-07)
DX: K91.89 Other postprocedural complications and disorders of digestive system (principal); K65.1 Peritoneal abscess; C78.7 Secondary malignant neoplasm of liver and intrahepatic bile duct; C78.00 Secondary malignant neoplasm of unspecified lung; C20 Malignant neoplasm of rectum; E46 Unspecified protein-calorie malnutrition; K94.09 Other complications of colostomy; F17.203 Nicotine dependence unspecified, with withdrawal; K91.71 Accidental puncture and laceration of a digestive system organ or structure during a digestive system procedure; E83.42 Hypomagnesemia; K94.29 Other complications of gastrostomy; D64.9 Anemia, unspecified; D63.8 Anemia in other chronic diseases classified elsewhere; I10 Essential (primary) hypertension; Z53.31 Laparoscopic surgical procedure converted to open procedure; Y83.8 Other surgical procedures as the cause of abnormal reaction of the patient, or of later complication, without mention of misadventure at the time of the procedure; N99.89 Other postprocedural complications and disorders of genitourinary system

== ENCOUNTER → 2016-11-09 19:12 | Outpatient (CLI) | payer SELFPAY ==
[2016-10-02 14:04] VITALS: BMI 16.0
[~2016-11-09 19:12] MED LIST changes: +CIPRO500 MG PO; +CLEOCIN HCL300 MG PO; +PERCOCET 10/3251 TA1 PO; +VIBRAMYCIN 100100 MG PO
== END | disposition home or self-care (01) ==
LOC: D.LABREF 19:12
DX: B99.9 Unspecified infectious disease (principal)

== ENCOUNTER → 2016-12-24 08:17 | Outpatient (CLI) | payer SELFPAY ==
[2016-10-02 14:04] VITALS: BMI 16.0
[2016-12-24 08:58] LABS: BASOPHILS 0.1 % (0.0-2.0); EOSINOPHILS 0.3 % (0-7); HEMATOCRIT 30.2 % (42.0-54.0); HEMOGLOBIN 10.5 g/dL (13.5-17.5); IMMATURE GRANULOCYTES 0.7 % (0-5); LYMPHOCYTES 5.3 % (15-50); MCH 33.9 pg (26.0-34.0); MCHC 34.8 g/dL (31.0-37.0); MCV 97.4 fL (80.0-100.0); MEAN PLATELET VOLUME 9.4 fL (7.4-10.4); MONOCYTES 8.6 % (2-11); PLATELET COUNT 495 10x3/uL (130-400); RDW 14.1 % (11.5-14.5); WBC 33.4 10x3/uL (4.8-10.8)
[2016-12-24 09:11] LABS: ALBUMIN 2.1 g/dL (3.4-5.0); ALKALINE PHOSPHATASE 890 U/L (46-116); ALT (SGPT) 16 U/L (10-68); BILIRUBIN - TOTAL 0.62 mg/dL (0.2-1.3); CALC OSMOLALITY 265 mosm/kg (275-300); CALCIUM 8.6 mg/dL (8.5-10.1); CARBON DIOXIDE 29.1 mmol/L (21.0-32.0); CHLORIDE - SERUM 97 mmol/L (98-107); CREATININE - SERUM 0.7 mg/dL (0.6-1.3); GLUCOSE 108 mg/dL (74-106); PROTEIN - SERUM 8.7 g/dL (6.4-8.2); SODIUM 132 mmol/L (136-145); UREA NITROGEN 13 mg/dL (7-18); eGFR NON AFRICAN AMERICAN > 90 mL/min (90-120)
== END | disposition home or self-care (01) ==
LOC: D.LAB 08:00 → D.CT 08:30
PROVIDERS: Surgery
DX: C20 Malignant neoplasm of rectum (principal)

== ENCOUNTER 2017-01-01 15:17 | Inpatient (IN) | payer SELFPAY ==
[~2017-01-01 15:17] MED LIST changes: -CIPRO500 MG PO
[2017-01-01 16:53] LABS: APTT 36.3 SECONDS (22.8-39.4); INR 1.28 (0.85-1.17); PROTIME 15.9 SECONDS (11.6-15.0)
[2017-01-01 16:58] LABS: RBC 2.19 10x6/uL (4.20-6.10); WBC 33.1 10x3/uL (4.8-10.8)
[2017-01-01 16:59] LABS: ALBUMIN 1.7 g/dL (3.4-5.0); ALKALINE PHOSPHATASE 816 U/L (46-116); ALT (SGPT) 12 U/L (10-68); BASOPHILS 0.2 % (0.0-2.0); BILIRUBIN - TOTAL 0.45 mg/dL (0.2-1.3); CALC OSMOLALITY 267 mosm/kg (275-300); CALCIUM 8.2 mg/dL (8.5-10.1); CHLORIDE - SERUM 98 mmol/L (98-107); CREATININE - SERUM 0.6 mg/dL (0.6-1.3); EOSINOPHILS 0.6 % (0-7); GLUCOSE 109 mg/dL (74-106); HEMATOCRIT 21.2 % (42.0-54.0); HEMOGLOBIN 7.2 g/dL (13.5-17.5); IMMATURE GRANULOCYTES 0.9 % (0-5); LYMPHOCYTES 8.6 % (15-50); MCH 32.9 pg (26.0-34.0); MCV 96.8 fL (80.0-100.0); MEAN PLATELET VOLUME 9.8 fL (7.4-10.4); MONOCYTES 9.3 % (2-11); NEUTROPHILS 80.4 % (40-80); PLATELET COUNT 507 10x3/uL (130-400); POTASSIUM - SERUM 3.2 mmol/L (3.5-5.1); PROTEIN - SERUM 7.8 g/dL (6.4-8.2); RDW 15.2 % (11.5-14.5); SODIUM 133 mmol/L (136-145); UREA NITROGEN 16 mg/dL (7-18); eGFR NON AFRICAN AMERICAN > 90 mL/min (90-120)
[2017-01-01 20:40] LABS: HEMATOCRIT 26.3 % (42.0-54.0); HEMOGLOBIN 8.9 g/dL (13.5-17.5)
[2017-01-02 00:24] LABS: BASOPHILS 0.1 % (0.0-2.0); EOSINOPHILS 0.2 % (0-7); HEMATOCRIT 21.6 % (42.0-54.0); HEMOGLOBIN 7.4 g/dL (13.5-17.5); IMMATURE GRANULOCYTES 1.3 % (0-5); LYMPHOCYTES 3.3 % (15-50); MCH 32.5 pg (26.0-34.0); MCHC 34.3 g/dL (31.0-37.0); MCV 94.7 fL (80.0-100.0); MEAN PLATELET VOLUME 10.1 fL (7.4-10.4); MONOCYTES 4.6 % (2-11); NEUTROPHILS 90.5 % (40-80); PLATELET COUNT 628 10x3/uL (130-400); RBC 2.28 10x6/uL (4.20-6.10); RDW 15.9 % (11.5-14.5); WBC 54.9 10x3/uL (4.8-10.8)
[2017-01-02 00:37] LABS: ALBUMIN 1.3 g/dL (3.4-5.0); ALKALINE PHOSPHATASE 578 U/L (46-116); ALT (SGPT) 9 U/L (10-68); BILIRUBIN - TOTAL 1.17 mg/dL (0.2-1.3); CALC OSMOLALITY 279 mosm/kg (275-300); CALCIUM 7.3 mg/dL (8.5-10.1); CARBON DIOXIDE 26.5 mmol/L (21.0-32.0); CHLORIDE - SERUM 104 mmol/L (98-107); GLUCOSE 149 mg/dL (74-106); POTASSIUM - SERUM 3.5 mmol/L (3.5-5.1); SODIUM 138 mmol/L (136-145); UREA NITROGEN 14 mg/dL (7-18)
[2017-01-02 00:38] LABS: CREATININE - SERUM 0.8 mg/dL (0.6-1.3); PROTEIN - SERUM 5.8 g/dL (6.4-8.2); eGFR NON AFRICAN AMERICAN > 90 mL/min (90-120)
[2017-01-02 07:47] LABS: BASOPHILS 0.1 % (0.0-2.0); EOSINOPHILS 0 % (0-7); HEMATOCRIT 22.7 % (42.0-54.0); HEMOGLOBIN 7.7 g/dL (13.5-17.5); IMMATURE GRANULOCYTES 1.6 % (0-5); MCH 31.4 pg (26.0-34.0); MCHC 33.9 g/dL (31.0-37.0); MCV 92.7 fL (80.0-100.0); MEAN PLATELET VOLUME 9.9 fL (7.4-10.4); MONOCYTES 4.1 % (2-11); NEUTROPHILS 91.2 % (40-80); PLATELET COUNT 474 10x3/uL (130-400); RBC 2.45 10x6/uL (4.20-6.10); RDW 15.9 % (11.5-14.5); WBC 63.4 10x3/uL (4.8-10.8)
[2017-01-02 08:00] LABS: CALCIUM 7.7 mg/dL (8.5-10.1); CARBON DIOXIDE 24.9 mmol/L (21.0-32.0); CHLORIDE - SERUM 104 mmol/L (98-107); GLUCOSE 133 mg/dL (74-106); MAGNESIUM - SERUM 1.4 mg/dL (1.8-2.4); SODIUM 137 mmol/L (136-145)
[2017-01-02 08:05] LABS: CALC OSMOLALITY 277 mosm/kg (275-300); CREATININE - SERUM 1.1 mg/dL (0.6-1.3); POTASSIUM - SERUM 4.2 mmol/L (3.5-5.1); UREA NITROGEN 18 mg/dL (7-18); eGFR NON AFRICAN AMERICAN 75 mL/min (90-120)
[2017-01-03 07:03] LABS: BASOPHILS 0 % (0.0-2.0); EOSINOPHILS 0 % (0-7); IMMATURE GRANULOCYTES 1.7 % (0-5); LYMPHOCYTES 5.3 % (15-50); MCH 32.3 pg (26.0-34.0); MCHC 34.9 g/dL (31.0-37.0); MCV 92.5 fL (80.0-100.0); MEAN PLATELET VOLUME 9.3 fL (7.4-10.4); MONOCYTES 7.2 % (2-11); NEUTROPHILS 85.8 % (40-80); PLATELET COUNT 459 10x3/uL (130-400); RDW 16.2 % (11.5-14.5); WBC 41.7 10x3/uL (4.8-10.8)
[2017-01-03 07:04] LABS: RBC 1.86 10x6/uL (4.20-6.10)
[2017-01-03 07:05] LABS: HEMATOCRIT 17.2 % (42.0-54.0)
[2017-01-03 07:14] LABS: ANION GAP 13.3 mmol/L (8-16); CALCIUM 7.5 mg/dL (8.5-10.1); CARBON DIOXIDE 24.1 mmol/L (21.0-32.0); CREATININE - SERUM 1.3 mg/dL (0.6-1.3); MAGNESIUM - SERUM 1.7 mg/dL (1.8-2.4); POTASSIUM - SERUM 4.4 mmol/L (3.5-5.1)
[2017-01-04 08:12] LABS: BASOPHILS 0.1 % (0.0-2.0); EOSINOPHILS 0 % (0-7); IMMATURE GRANULOCYTES 1.3 % (0-5); LYMPHOCYTES 2.3 % (15-50); MCH 29.6 pg (26.0-34.0); MCHC 33.7 g/dL (31.0-37.0); MEAN PLATELET VOLUME 9.5 fL (7.4-10.4); MONOCYTES 3.7 % (2-11); NEUTROPHILS 92.6 % (40-80); RDW 16.9 % (11.5-14.5)
[2017-01-04 08:15] LABS: HEMATOCRIT 30.9 % (42.0-54.0); HEMOGLOBIN 10.4 g/dL (13.5-17.5); RBC 3.51 10x6/uL (4.20-6.10); WBC 15.8 10x3/uL (4.8-10.8)
[2017-01-04 08:16] LABS: PLATELET COUNT 253 10x3/uL (130-400)
[2017-01-04 08:21] LABS: CALC OSMOLALITY 282 mosm/kg (275-300); CALCIUM 7.5 mg/dL (8.5-10.1); CARBON DIOXIDE 23.7 mmol/L (21.0-32.0); CHLORIDE - SERUM 108 mmol/L (98-107); GLUCOSE 65 mg/dL (74-106); MAGNESIUM - SERUM 1.7 mg/dL (1.8-2.4); POTASSIUM - SERUM 4.1 mmol/L (3.5-5.1); SODIUM 141 mmol/L (136-145); UREA NITROGEN 25 mg/dL (7-18); eGFR NON AFRICAN AMERICAN 84 mL/min (90-120)
[2017-01-05 06:01] LABS: BASOPHILS 0.1 % (0.0-2.0); EOSINOPHILS 0 % (0-7); HEMATOCRIT 30.8 % (42.0-54.0); HEMOGLOBIN 10.5 g/dL (13.5-17.5); IMMATURE GRANULOCYTES 0.7 % (0-5); LYMPHOCYTES 5.1 % (15-50); MCH 29.9 pg (26.0-34.0); MCHC 34.1 g/dL (31.0-37.0); MCV 87.7 fL (80.0-100.0); MEAN PLATELET VOLUME 9.9 fL (7.4-10.4); MONOCYTES 4.7 % (2-11); NEUTROPHILS 89.4 % (40-80); PLATELET COUNT 247 10x3/uL (130-400); RBC 3.51 10x6/uL (4.20-6.10); RDW 17.2 % (11.5-14.5)
[2017-01-05 06:15] LABS: WBC 11.5 10x3/uL (4.8-10.8)
[2017-01-05 06:44] LABS: CALCIUM 8.1 mg/dL (8.5-10.1); CARBON DIOXIDE 26.9 mmol/L (21.0-32.0); CHLORIDE - SERUM 104 mmol/L (98-107); CREATININE - SERUM 0.9 mg/dL (0.6-1.3); MAGNESIUM - SERUM 1.3 mg/dL (1.8-2.4); SODIUM 140 mmol/L (136-145); UREA NITROGEN 21 mg/dL (7-18); eGFR NON AFRICAN AMERICAN > 90 mL/min (90-120)
[2017-01-05 06:45] LABS: CALC OSMOLALITY 279 mosm/kg (275-300); GLUCOSE 61 mg/dL (74-106); POTASSIUM - SERUM 3.4 mmol/L (3.5-5.1)
[2017-01-06 05:37] LABS: BASOPHILS 0 % (0.0-2.0); EOSINOPHILS 0 % (0-7); HEMATOCRIT 32.5 % (42.0-54.0); HEMOGLOBIN 10.9 g/dL (13.5-17.5); IMMATURE GRANULOCYTES 0.5 % (0-5); LYMPHOCYTES 6.7 % (15-50); MCH 29.7 pg (26.0-34.0); MCHC 33.5 g/dL (31.0-37.0); MCV 88.6 fL (80.0-100.0); MEAN PLATELET VOLUME 9.6 fL (7.4-10.4); MONOCYTES 6.1 % (2-11); NEUTROPHILS 86.7 % (40-80); PLATELET COUNT 261 10x3/uL (130-400); RBC 3.67 10x6/uL (4.20-6.10); RDW 16.8 % (11.5-14.5); WBC 12.1 10x3/uL (4.8-10.8)
[2017-01-06 05:49] LABS: CALC OSMOLALITY 273 mosm/kg (275-300); CALCIUM 7.8 mg/dL (8.5-10.1); CARBON DIOXIDE 28.8 mmol/L (21.0-32.0); CHLORIDE - SERUM 99 mmol/L (98-107); CREATININE - SERUM 0.7 mg/dL (0.6-1.3); MAGNESIUM - SERUM 1.6 mg/dL (1.8-2.4); POTASSIUM - SERUM 3.1 mmol/L (3.5-5.1); SODIUM 137 mmol/L (136-145); UREA NITROGEN 17 mg/dL (7-18); eGFR NON AFRICAN AMERICAN > 90 mL/min (90-120)
[2017-01-06 05:54] LABS: GLUCOSE 66 mg/dL (74-106)
[2017-01-06 08:18] LABS: PHOSPHOROUS 2.9 mg/dL (2.5-4.9)
[2017-01-07 06:15] LABS: BASOPHILS 0.2 % (0.0-2.0); EOSINOPHILS 0 % (0-7); HEMATOCRIT 33.2 % (42.0-54.0); IMMATURE GRANULOCYTES 0.8 % (0-5); LYMPHOCYTES 11.4 % (15-50); MCH 29.2 pg (26.0-34.0); MCHC 33.1 g/dL (31.0-37.0); MCV 88.1 fL (80.0-100.0); MEAN PLATELET VOLUME 9.9 fL (7.4-10.4); MONOCYTES 8.3 % (2-11); NEUTROPHILS 79.3 % (40-80); RBC 3.77 10x6/uL (4.20-6.10); RDW 16.3 % (11.5-14.5); WBC 9.1 10x3/uL (4.8-10.8)
[2017-01-07 06:17] LABS: PLATELET COUNT 194 10x3/uL (130-400)
[2017-01-07 06:31] LABS: CALCIUM 7.7 mg/dL (8.5-10.1); CARBON DIOXIDE 34.6 mmol/L (21.0-32.0); CHLORIDE - SERUM 98 mmol/L (98-107); CREATININE - SERUM 0.7 mg/dL (0.6-1.3); MAGNESIUM - SERUM 1.3 mg/dL (1.8-2.4); PHOSPHOROUS 2.3 mg/dL (2.5-4.9); SODIUM 138 mmol/L (136-145); UREA NITROGEN 14 mg/dL (7-18); eGFR NON AFRICAN AMERICAN > 90 mL/min (90-120)
[2017-01-07 06:35] LABS: CALC OSMOLALITY 277 mosm/kg (275-300); GLUCOSE 122 mg/dL (74-106)
[2017-01-08 06:43] LABS: CALC OSMOLALITY 277 mosm/kg (275-300); CALCIUM 7.8 mg/dL (8.5-10.1); CHLORIDE - SERUM 97 mmol/L (98-107); CREATININE - SERUM 0.6 mg/dL (0.6-1.3); GLUCOSE 151 mg/dL (74-106); MAGNESIUM - SERUM 1.7 mg/dL (1.8-2.4); PHOSPHOROUS 2.5 mg/dL (2.5-4.9); POTASSIUM - SERUM 3.5 mmol/L (3.5-5.1); SODIUM 137 mmol/L (136-145); UREA NITROGEN 15 mg/dL (7-18); eGFR NON AFRICAN AMERICAN > 90 mL/min (90-120)
[2017-01-09 03:22] LABS: BASOPHILS 0.2 % (0-2); EOSINOPHILS 0.5 % (0-7); HEMOGLOBIN 10.2 g/dL (13.5-17.5); IMMATURE GRANULOCYTES 0.6 % (0-5); LYMPHOCYTES 15.5 % (15-50); MCH 29.1 pg (26.0-34.0); MCHC 32.9 g/dL (31.0-37.0); MCV 88.6 fL (80.0-100.0); MEAN PLATELET VOLUME 11.1 fL (7.4-10.4); NEUTROPHILS 73.2 % (40-80); PLATELET COUNT 146 10x3/uL (130-400); RDW 16.1 % (11.5-14.5); WBC 10.2 10x3/uL (4.8-10.8)
[2017-01-09 03:34] LABS: CALC OSMOLALITY 269 mosm/kg (275-300); CALCIUM 7.7 mg/dL (8.5-10.1); CHLORIDE - SERUM 94 mmol/L (98-107); CREATININE - SERUM 0.5 mg/dL (0.6-1.3); GLUCOSE 156 mg/dL (74-106); MAGNESIUM - SERUM 1.6 mg/dL (1.8-2.4); PHOSPHOROUS 2.6 mg/dL (2.5-4.9); POTASSIUM - SERUM 3.8 mmol/L (3.5-5.1); SODIUM 133 mmol/L (136-145); UREA NITROGEN 14 mg/dL (7-18); eGFR NON AFRICAN AMERICAN > 90 mL/min (90-120)
[2017-01-10 07:56] LABS: CALC OSMOLALITY 271 mosm/kg (275-300); CALCIUM 7.7 mg/dL (8.5-10.1); CHLORIDE - SERUM 96 mmol/L (98-107); CREATININE - SERUM 0.5 mg/dL (0.6-1.3); GLUCOSE 148 mg/dL (74-106); MAGNESIUM - SERUM 1.7 mg/dL (1.8-2.4); PHOSPHOROUS 2.9 mg/dL (2.5-4.9); SODIUM 134 mmol/L (136-145); UREA NITROGEN 16 mg/dL (7-18); eGFR NON AFRICAN AMERICAN > 90 mL/min (90-120)
[2017-01-11 06:45] LABS: BASOPHILS 0.3 % (0-2); EOSINOPHILS 0.6 % (0-7); HEMATOCRIT 30.4 % (42.0-54.0); HEMOGLOBIN 10.1 g/dL (13.5-17.5); IMMATURE GRANULOCYTES 0.6 % (0-5); LYMPHOCYTES 10.3 % (15-50); MCH 29.5 pg (26.0-34.0); MCHC 33.2 g/dL (31.0-37.0); MCV 88.9 fL (80.0-100.0); MEAN PLATELET VOLUME 11.5 fL (7.4-10.4); MONOCYTES 9.2 % (2-11); RBC 3.42 10x6/uL (4.20-6.10); RDW 16.5 % (11.5-14.5); WBC 15.5 10x3/uL (4.8-10.8)
[2017-01-11 06:46] LABS: PLATELET COUNT 249 10x3/uL (130-400)
[2017-01-11 07:09] LABS: CALC OSMOLALITY 272 mosm/kg (275-300); CALCIUM 7.9 mg/dL (8.5-10.1); CARBON DIOXIDE 32.4 mmol/L (21.0-32.0); CHLORIDE - SERUM 97 mmol/L (98-107); GLUCOSE 146 mg/dL (74-106); MAGNESIUM - SERUM 1.3 mg/dL (1.8-2.4); PHOSPHOROUS 2.3 mg/dL (2.5-4.9); POTASSIUM - SERUM 3.6 mmol/L (3.5-5.1); SODIUM 134 mmol/L (136-145); UREA NITROGEN 18 mg/dL (7-18)
[2017-01-11 07:11] LABS: CREATININE - SERUM 0.7 mg/dL (0.6-1.3); eGFR NON AFRICAN AMERICAN > 90 mL/min (90-120)
[2017-01-12 06:05] LABS: BASOPHILS 0.3 % (0-2); EOSINOPHILS 0.5 % (0-7); HEMATOCRIT 28.6 % (42.0-54.0); HEMOGLOBIN 9.5 g/dL (13.5-17.5); IMMATURE GRANULOCYTES 0.5 % (0-5); LYMPHOCYTES 11.9 % (15-50); MCH 29.3 pg (26.0-34.0); MCHC 33.2 g/dL (31.0-37.0); MCV 88.3 fL (80.0-100.0); MEAN PLATELET VOLUME 12.1 fL (7.4-10.4); NEUTROPHILS 71.8 % (40-80); RBC 3.24 10x6/uL (4.20-6.10); RDW 16.7 % (11.5-14.5); WBC 15.2 10x3/uL (4.8-10.8)
[2017-01-12 06:26] LABS: PLATELET COUNT 326 10x3/uL (130-400)
[2017-01-12 06:40] LABS: CALC OSMOLALITY 272 mosm/kg (275-300); CALCIUM 7.9 mg/dL (8.5-10.1); CARBON DIOXIDE 30.5 mmol/L (21.0-32.0); CHLORIDE - SERUM 98 mmol/L (98-107); CREATININE - SERUM 0.8 mg/dL (0.6-1.3); POTASSIUM - SERUM 3.4 mmol/L (3.5-5.1); SODIUM 136 mmol/L (136-145); UREA NITROGEN 19 mg/dL (7-18); eGFR NON AFRICAN AMERICAN > 90 mL/min (90-120)
[2017-01-12 06:48] LABS: GLUCOSE 84 mg/dL (74-106)
[2017-01-13 05:55] LABS: BASOPHILS 0.3 % (0-2); EOSINOPHILS 0.4 % (0-7); HEMOGLOBIN 9.4 g/dL (13.5-17.5); IMMATURE GRANULOCYTES 0.6 % (0-5); LYMPHOCYTES 11.4 % (15-50); MCH 29.7 pg (26.0-34.0); MCHC 33.6 g/dL (31.0-37.0); MCV 88.6 fL (80.0-100.0); MEAN PLATELET VOLUME 11.4 fL (7.4-10.4); MONOCYTES 16.5 % (2-11); NEUTROPHILS 70.8 % (40-80); PLATELET COUNT 377 10x3/uL (130-400); RBC 3.16 10x6/uL (4.20-6.10); RDW 16.9 % (11.5-14.5); WBC 14.5 10x3/uL (4.8-10.8)
[2017-01-13] MEDS ORDERED: PERCOCET 10/3251 TA1 PO (12:38)
[2017-01-14] MEDS ORDERED: CIPRO500 MG PO (11:50)
[2017-01-14] MEDS ORDERED: FLAGYL500 MG PO (11:51)
== END 2017-01-14 14:04 | disposition home or self-care (01) | DRG 335 ==
LOC: D.ER 15:17 → D.MS 17:20
PROVIDERS: Emergency Medicine; Surgery; ADMIT Surgery
PROC: 0DSL0ZZ Reposition Transverse Colon, Open Approach (ICD-10-PCS; principal; 2017-01-01)
PROC: 0DNW0ZZ Release Peritoneum, Open Approach (ICD-10-PCS; 2017-01-01)
PROC: 0DSM0ZZ Reposition Descending Colon, Open Approach (ICD-10-PCS; 2017-01-01)
PROC: 3E1M38Z Irrigation of Peritoneal Cavity using Irrigating Substance, Percutaneous Approach (ICD-10-PCS; 2017-01-01)
PROC: 0WUF0JZ Supplement Abdominal Wall with Synthetic Substitute, Open Approach (ICD-10-PCS; 2017-01-01)
PROC: 0WUF0JZ Supplement Abdominal Wall with Synthetic Substitute, Open Approach (ICD-10-PCS; 2017-01-01)
PROC: 02HV33Z Insertion of Infusion Device into Superior Vena Cava, Percutaneous Approach (ICD-10-PCS; 2017-01-01)
PROC: 0JQ80ZZ Repair Abdomen Subcutaneous Tissue and Fascia, Open Approach (ICD-10-PCS; 2017-01-04)
PROC: 3E1M38Z Irrigation of Peritoneal Cavity using Irrigating Substance, Percutaneous Approach (ICD-10-PCS; 2017-01-04)
DX: K65.1 Peritoneal abscess (principal); E43 Unspecified severe protein-calorie malnutrition; C18.9 Malignant neoplasm of colon, unspecified; C78.7 Secondary malignant neoplasm of liver and intrahepatic bile duct; T81.32XA Disruption of internal operation (surgical) wound, not elsewhere classified, initial encounter; F17.203 Nicotine dependence unspecified, with withdrawal; K91.89 Other postprocedural complications and disorders of digestive system; K56.1 Intussusception; Z68.1 Body mass index [BMI] 19.9 or less, adult; K94.00 Colostomy complication, unspecified; Y83.3 Surgical operation with formation of external stoma as the cause of abnormal reaction of the patient, or of later complication, without mention of misadventure at the time of the procedure; D63.0 Anemia in neoplastic disease; I10 Essential (primary) hypertension; D50.0 Iron deficiency anemia secondary to blood loss (chronic); J44.9 Chronic obstructive pulmonary disease, unspecified

== ENCOUNTER 2017-02-16 10:42 | Inpatient (IN) | payer MEDICAID ==
[~2017-02-16] VITALS: Ht 180.3 cm; Wt 47.2 kg
[~2017-02-16 10:42] MED LIST changes: +CIPRO500 MG PO
[2017-02-16 11:41] LABS: ALBUMIN 1.7 g/dL (3.4-5.0); ALT (SGPT) 21 U/L (10-68); CALCIUM 7.6 mg/dL (8.5-10.1); CARBON DIOXIDE 33.4 mmol/L (21.0-32.0); CHLORIDE - SERUM 94 mmol/L (98-107); CREATININE - SERUM 0.4 mg/dL (0.6-1.3); PROTEIN - SERUM 8.3 g/dL (6.4-8.2); SODIUM 130 mmol/L (136-145); UREA NITROGEN 23 mg/dL (7-18); eGFR NON AFRICAN AMERICAN > 90 mL/min (90-120)
[2017-02-16 11:45] LABS: CALC OSMOLALITY 262 mosm/kg (275-300); GLUCOSE 64 mg/dL (74-106)
[2017-02-16 11:47] LABS: UDS - AMPHET NEGATIVE QUAL (NEGATIVE); UDS - BARB NEGATIVE QUAL (NEGATIVE); UDS - BENZO NEGATIVE QUAL (NEGATIVE); UDS - COCAINE NEGATIVE QUAL (NEGATIVE); UDS - METH NEGATIVE QUAL (NEGATIVE); UDS - OPIATE NEGATIVE QUAL (NEGATIVE); UDS - PCP NEGATIVE QUAL (NEGATIVE); UDS - THC NEGATIVE QUAL (NEGATIVE)
[2017-02-16 11:54] LABS: HEMATOCRIT 22.8 % (42.0-54.0); HEMOGLOBIN 7.8 g/dL (13.5-17.5); MCH 33.2 pg (26.0-34.0); MCHC 34.2 g/dL (31.0-37.0); MEAN PLATELET VOLUME 10.1 fL (7.4-10.4); PLATELET COUNT 354 10x3/uL (130-400); RBC 2.35 10x6/uL (4.20-6.10); RDW 20.4 % (11.5-14.5); WBC 42.5 10x3/uL (4.8-10.8)
[2017-02-16 11:55] LABS: APPEARANCE CLEAR (CLEAR); BILIRUBIN NEGATIVE (NEGATIVE); COLOR DK YELLOW (YELLOW); GLUCOSE NEGATIVE (NEGATIVE); KETONE NEGATIVE (NEGATIVE); LEUKOCYTE ESTERASE NEGATIVE (NEGATIVE); NITRITE NEGATIVE (NEGATIVE); PROTEIN NEGATIVE (NEGATIVE); SPECIFIC GRAVITY 1.015 (1.005-1.020); UROBILINOGEN NORMAL (NORMAL)
[2017-02-16 12:02] LABS: ALKALINE PHOSPHATASE 2079 U/L (46-116)
[2017-02-16 12:52] LABS: LYMPHOCYTES 6 % (15-50); MONOCYTES 5 % (2-11); NEUTROPHILS 85 % (40-80); PLATELET ESTIMATE NORMAL
--- NOTE | 2017-02-16 13:28 | NUR ---
ER CM: Patient and family request assist with hospice in the home. HHS: [facility] Emergency contact: Baljinder Lopez Jr #[phone] (brother). Sheridan Kilpatrick #[phone] (ex-). Caregivers in the home: Sheridan Kilpatrick. Contacted Nayely with [facility] to make her aware of patient's request. Patient's father has had hospice in the past and patient states he is familiar with hospice. Spoke with patient's brother, Baljinder Lopez Jr and he is in agreeent with same. A self pay representative from [facility] will visit with patient/family for same. Cindy Gonzales RN CM
--- NOTE | 2017-02-16 15:50 | NUR ---
RECEIVED TO ROOM 2215 FROM ER. TRANSFERRED TO BED. FAMILY IN ROOM. CALL LIGHT IN REACH.
[2017-02-16 16:12] VITALS: BP 117/87; BMI 14.5
--- NOTE | 2017-02-16 16:30 | NUR ---
LEFT IP ACCESSED WITH COLEMAN NEEDLE USING STERILE TECHNIQUE PER AMBER KINGSTON.
[2017-02-16 16:51] LABS: % SATURATION 46 % (15-55); IRON 35 ug/dl (35-150); TOTAL IRON BIND CAPACITY 76 ug/dl (260-445)
[2017-02-16 17:17] LABS: UNSAT IRON BIND CAPACITY 41 ug/dl (150-375)
--- NOTE | 2017-02-16 18:30 | NUR ---
NO CHANGES IN INITIAL ASSESSMENT. CALL LIGHT IN REACH. WILL CONTINUE WITH PLAN OF CARE.
--- NOTE | 2017-02-16 19:54 | NUR ---
PATIENT RESTING IN BED WITH AT BEDSIDE. ADMINISTERED MORPHINE PER ORDERS. PATIENT DENIES OTHER NEEDS AT THIS TIME. BED IN LOWEST POSITION AND CALL LIGHT WITHIN REACH. ENCOURAGED THE PATIENT TO CALL IF HE HAS FURTHER NEEDS.
[2017-02-16 20:00] VITALS: BP 103/75
[2017-02-16 21:00] LABS: APPEARANCE CLEAR (CLEAR); BILIRUBIN NEGATIVE (NEGATIVE); COLOR YELLOW (YELLOW); GLUCOSE NEGATIVE (NEGATIVE); KETONE NEGATIVE (NEGATIVE); LEUKOCYTE ESTERASE NEGATIVE (NEGATIVE); NITRITE NEGATIVE (NEGATIVE); PROTEIN NEGATIVE (NEGATIVE); SPECIFIC GRAVITY 1.015 (1.005-1.020); UROBILINOGEN NORMAL (NORMAL)
--- NOTE | 2017-02-16 23:15 | NUR ---
LAB CALLED TO CONFIRM BLOOD IS READY.
--- NOTE | 2017-02-17 00:47 | NUR ---
BEGAN INFUSING BLOOD. PATIENT TOLERATING WELL.
[2017-02-17 05:18] LABS: BASOPHILS 0 % (0-2); EOSINOPHILS 0 % (0-7); HEMATOCRIT 25.5 % (42.0-54.0); HEMOGLOBIN 8.5 g/dL (13.5-17.5); IMMATURE GRANULOCYTES 0.7 % (0-5); LYMPHOCYTES 2.5 % (15-50); MCH 30.5 pg (26.0-34.0); MCHC 33.3 g/dL (31.0-37.0); MCV 91.4 fL (80.0-100.0); MONOCYTES 3.8 % (2-11); PLATELET COUNT 290 10x3/uL (130-400); RBC 2.79 10x6/uL (4.20-6.10); RDW 24.5 % (11.5-14.5); WBC 40.2 10x3/uL (4.8-10.8)
[2017-02-17 05:28] LABS: ALBUMIN 1.5 g/dL (3.4-5.0); ALT (SGPT) 19 U/L (10-68); BILIRUBIN - TOTAL 2.78 mg/dL (0.2-1.3); CARBON DIOXIDE 31.3 mmol/L (21.0-32.0); CHLORIDE - SERUM 100 mmol/L (98-107); CREATININE - SERUM 0.4 mg/dL (0.6-1.3); PROTEIN - SERUM 7.3 g/dL (6.4-8.2); SODIUM 135 mmol/L (136-145); UREA NITROGEN 22 mg/dL (7-18); eGFR NON AFRICAN AMERICAN > 90 mL/min (90-120)
[2017-02-17 05:33] LABS: CALC OSMOLALITY 270 mosm/kg (275-300)
[2017-02-17 05:34] LABS: GLUCOSE 63 mg/dL (74-106); POTASSIUM - SERUM 2.6 mmol/L (3.5-5.1)
[2017-02-17 05:42] LABS: ALKALINE PHOSPHATASE 2042 U/L (46-116)
--- NOTE | 2017-02-17 07:15 | NUR ---
REPORT RECEIVED FROM RESIDENTIAL DOOR UNIT INSTALLER NURSE. CALL LIGHT IN REACH.
--- NOTE | 2017-02-17 07:48 | NUR ---
ASSESSMENT COMPLETED. REFUSES SCDs. OXY IR WITH NICOTINE PATCH. CALL LIGHT IN REACH. WILL CONTINUE WITH PLAN OF CARE.
[2017-02-17 08:06] VITALS: BP 132/92
--- NOTE | 2017-02-17 08:30 | NUR ---
ENTERED ROOM TO ANSWER CALL LIGHT, PT REQUESTING PAIN MEDICATION, ALMITA CANO ENTERED ROOM AT THIS TIME TO ADMINISTER ORDERED MEDICATION. PT SITTING UP TO SIDE OF BED EATING BREAKFAST. BED IN LOW POSITION AND CALL LIGHT WITHIN REACH, WILL CONTINUE TO BOWEN.
--- NOTE | 2017-02-17 08:35 | NUR ---
PT ASLEEP AT THIS TIME WITH NO VISABLE SIGNS OF PAIN OR DISCOMFORT. BED IN LOW POSITION AND CALL LIGHT WITHIN REACH. WILL CONTINUE TO MONITOR.
--- NOTE | 2017-02-17 08:40 | NUR ---
Patient Name: JANIS TORREZ Admission Status: ER Accout number: [id number] Admission Date: 02-16-2017 : 1965 Admission Diagnosis: Attending: PÉREZ Current LOS: 1 Anticipated DC Date: Planned Disposition: Primary Insurance: [place] Discharge Planning Comments: CM NOTE: [phone] Estephanie Lquue
--- NOTE | 2017-02-17 10:11 | NUR ---
NIECE IN ROOM WITH PATIENT AT THIS TIME. STATES SHE WILL HELP ASSIST HIM WITH A BATH AFTER HIS NEXT DOSE OF PAIN MEDS.
[2017-02-17 12:48] VITALS: BP 111/76
--- NOTE | 2017-02-17 13:22 | NUR ---
CM NOTE: SPOKE WITH TEVIN CHERY WITH [facility]. SHE STATED THAT SHE SPOKE WITH PATIENT AND SETTING EVERYTHING UP AND ORDERING EQUIPMENT AND PLAN IS TO BE DISCHARGE HOME TOMORROW. HILLARY PEDERSEN RN
[2017-02-17 14:28] VITALS: Ht 180.3 cm; Wt 47.2 kg
[2017-02-17 16:02] VITALS: BP 135/103
--- NOTE | 2017-02-17 17:06 | NUR ---
OXY IR PO PER C/O PAIN AND PATIENT'S REQUEST. ASKED FOR NORCO UNTIL HE FOUND OUT UNTIL I TOLD HIM HE STILL HAD OXY IR ORDERED.
--- NOTE | 2017-02-17 19:15 | NUR ---
REPOSITIONED PATIENT WITH LUDWIN RECIO. PATIENT IS RESTING IN BED AND DENIES OTHER NEEDS AT THIS TIME. BED IN LOWEST POSITION, CALL LIGHT WITHIN REACH, AND BED ALARM ON. ENCOURAGED THE PATIENT TO CALL IF HE HAS FURTHER NEEDS.
[2017-02-17 20:00] VITALS: BP 122/93
[2017-02-18 04:00] VITALS: BP 121/89
[2017-02-18 06:08] LABS: BASOPHILS 0 % (0-2); EOSINOPHILS 0 % (0-7); HEMATOCRIT 25.9 % (42.0-54.0); HEMOGLOBIN 8.6 g/dL (13.5-17.5); IMMATURE GRANULOCYTES 0.5 % (0-5); LYMPHOCYTES 5.7 % (15-50); MCH 30.4 pg (26.0-34.0); MCHC 33.2 g/dL (31.0-37.0); MCV 91.5 fL (80.0-100.0); MEAN PLATELET VOLUME 10.2 fL (7.4-10.4); MONOCYTES 6.3 % (2-11); NEUTROPHILS 87.5 % (40-80); PLATELET COUNT 249 10x3/uL (130-400); RBC 2.83 10x6/uL (4.20-6.10); RDW 25.3 % (11.5-14.5); WBC 21.6 10x3/uL (4.8-10.8)
[2017-02-18 06:27] LABS: ALBUMIN 1.5 g/dL (3.4-5.0); CALC OSMOLALITY 268 mosm/kg (275-300); CHLORIDE - SERUM 99 mmol/L (98-107); CREATININE - SERUM 0.5 mg/dL (0.6-1.3); GLUCOSE 75 mg/dL (74-106); PROTEIN - SERUM 7.3 g/dL (6.4-8.2); SODIUM 134 mmol/L (136-145); UREA NITROGEN 17 mg/dL (7-18); eGFR NON AFRICAN AMERICAN > 90 mL/min (90-120)
[2017-02-18 06:39] LABS: ALKALINE PHOSPHATASE 2159 U/L (46-116); ALT (SGPT) 27 U/L (10-68)
--- NOTE | 2017-02-18 07:15 | NUR ---
ASSESSMENT PER FLOW SHEET. PT WITHOUT DISTRESS.PT REPOSITIONED AND PADS CHANGED.HEART SHAPED DRESSING PLACED ON COCCYX.ENTIRE COCCYX IS RED WITH SCABS AND PINK TINTED DRAINAGE.SMALL PIN HOLE NOTED IN PERINEUM AREA WITH YELLOW GREEN DRAINAGE WITH VERY STRONG ODOR.PREVIOUS TREVOR DRAIN STES NOTED WITH RIGHT HAVING SCAB ON IT AND LEFT SIDE YELLOW/GREEN DRAINAGE.COLOSTOMY BAG IN PLACE WITHOUT LEAKAGE AROUND STOMA.SOFT FORMED STOOL NOTED IN BAG.
[2017-02-18 07:53] VITALS: BP 126/93
[2017-02-18 10:20] LABS: INSULIN <0.2 uIU/mL (2.6-24.9)
[2017-02-18 11:18] LABS: FOLATE (FOLIC ACID) - SERUM 8.4 ng/mL (>3.0)
--- NOTE | 2017-02-18 11:30 | NUR ---
PAIN UNCONTROLLED.PT REQUESTING PAIN MEDS.STATES PO PAIN MEDS ARE LKE TAKING NOTHING.WISHES FOR IV MEDS WHEN TIME
--- NOTE | 2017-02-18 14:15 | NUR ---
PT WITHOUT NEEDS.CALL LIGHT IN REACH
--- NOTE | 2017-02-18 15:47 | NUR ---
02/18/2017 15:41 DCP: Discharge Planning Home Hospice arranged earlier - all DME has been set up at home. Patient experiencing difficulty with pain management. [facility] re-evaluating for [facility]. Waiting determination.
--- NOTE | 2017-02-18 17:06 | NUR ---
FAMILY AT BEDSIDE.PT WITHOUT NEEDS AT PRESENT.REQUEST PAIN MEDS WHEN TIME.CALL LIGHT IN REACH
[2017-02-18 20:00] VITALS: BP 113/78
[2017-02-19] VITALS: BP 122/89
[2017-02-19 04:00] VITALS: BP 102/70
[2017-02-19 05:19] LABS: BASOPHILS 0 % (0-2); EOSINOPHILS 0 % (0-7); HEMOGLOBIN 7.8 g/dL (13.5-17.5); IMMATURE GRANULOCYTES 0.4 % (0-5); LYMPHOCYTES 7.1 % (15-50); MCH 31.1 pg (26.0-34.0); MCHC 33.9 g/dL (31.0-37.0); MCV 91.6 fL (80.0-100.0); MEAN PLATELET VOLUME 10.3 fL (7.4-10.4); NEUTROPHILS 85.5 % (40-80); PLATELET COUNT 190 10x3/uL (130-400); RBC 2.51 10x6/uL (4.20-6.10); WBC 21.1 10x3/uL (4.8-10.8)
[2017-02-19 05:40] LABS: ALBUMIN 1.4 g/dL (3.4-5.0); ALT (SGPT) 28 U/L (10-68); BILIRUBIN - TOTAL 1.73 mg/dL (0.2-1.3); CALC OSMOLALITY 267 mosm/kg (275-300); CARBON DIOXIDE 29.2 mmol/L (21.0-32.0); CHLORIDE - SERUM 100 mmol/L (98-107); CREATININE - SERUM 0.4 mg/dL (0.6-1.3); GLUCOSE 89 mg/dL (74-106); PROTEIN - SERUM 6.6 g/dL (6.4-8.2); SODIUM 134 mmol/L (136-145); UREA NITROGEN 14 mg/dL (7-18); eGFR NON AFRICAN AMERICAN > 90 mL/min (90-120)
[2017-02-19 05:42] LABS: ALKALINE PHOSPHATASE 1887 U/L (46-116); CALCIUM 6.8 mg/dL (8.5-10.1); POTASSIUM - SERUM 2.8 mmol/L (3.5-5.1)
--- NOTE | 2017-02-19 08:00 | NUR ---
SLEEPING AND POSITIONED ON LEFT SIDE AT THIS TIME. OROZCO PATENT AND DRAINING TO GRAVITY. BED ALARM ON AND SCD'S REFUSED PER PT. CALL LIGHT IN REACH, WILL CONTINUE WITH PLAN OF CARE.
--- NOTE | 2017-02-19 08:29 | NUR ---
LATE ENTRY- CM REC CALL AROUND 5:15 FROM [facility] REGARDING PATIENTS FAMILY CALLING AND STATING HE HAD NO WHERE TO GO AND FAMILY WANTED HIM TO GO TO [facility] IP. CM SPOKE WITH SHEREEN AND SHE STATED SHE HAD TOLD THEM HE DID NOT HAVE TO LEAVE THAT HE WAS IN PAIN AND SHE NEEDED TO ADDRESS THAT. PATIENT HAD BEEN DENIED IP HOSPICE HERE AND FAMILY HAD MISUNDERSTOOD ABOUT HAVING TO LEAVE AT THAT TIME. CM WILL CALL [facility] THIS AM AND SEND REFERRAL.
--- NOTE | 2017-02-19 08:35 | NUR ---
Phone call to Lacey Mcnamara with [facility] - patient did not meet [facility] hospice qualifications. Patient & family are requesting referral be sent to the inpatient facility at [facility]. Referral faxed & called to [facility]. Waiting determination. CM will follow.
--- NOTE | 2017-02-19 09:02 | NUR ---
PRN MORPHINE ADMINISTERED PER ORDER AT THIS TIME FOR PAIN 05/30. ASSISTED TO LYING POSITION IN BED X2 ASSIST. OROZCO CARE PROVIDED AND DRAINING TO GRAVITY. BED ALARM ON AND CALL LIGHT IN REACH. WILL CONTINUE WITH PLAN OF CARE.
[2017-02-19 09:19] VITALS: BP 115/88
[2017-02-19 11:47] LABS: PHOSPHOROUS 1.8 mg/dL (2.5-4.9)
[2017-02-19 11:50] LABS: MAGNESIUM - SERUM 1.2 mg/dL (1.8-2.4)
--- NOTE | 2017-02-19 11:59 | NUR ---
PRN MORPHINE ADMINISTERED PER ORDER AT THIS TIME FOR PAIN 05/30. CALL LIGHT IN REACH, WILL CONTINUE WITH PLAN OF CARE.
[2017-02-19 12:45] VITALS: BP 117/87
--- NOTE | 2017-02-19 13:30 | NUR ---
Patient and family met with [facility] per their request. Patient has decided to go to [facility] in their inpatient unit. [facility] has accepted patient to room 550. He will transport via EMS. Nursing to call report [phone].
--- NOTE | 2017-02-19 14:00 | NUR ---
PORT TO RIGHT CHEST WALL SALINE LOCKED AND DISCHARGE PAPERWORK REVIEWED WITH PT. FAMILY AT BEDSIDE AND DUODERM DRESSING APPLIED TO BUTTOCK. REPORT CALLED TO AMBER REYES AT [facility]. CALL LIGHT IN REACH, WILL CONTINUE WITH PLAN OF CARE.
--- NOTE | 2017-02-19 15:27 | NUR ---
PT GIVEN 4MG MORPHINE IV AT THIS TIME PER ORDERS AT THIS TIME. PT DISCHARGED VIA [facility] VIA GURNEY AT THIS TIME VIA AMBULANCE
== END 2017-02-19 15:29 | disposition home health service (06) | DRG 641 ==
LOC: D.ER 10:42 → D.MS 15:00
PROVIDERS: Emergency Medicine; ADMIT Family Medicine
DX: E16.2 Hypoglycemia, unspecified (principal); C78.5 Secondary malignant neoplasm of large intestine and rectum; C78.7 Secondary malignant neoplasm of liver and intrahepatic bile duct; C78.00 Secondary malignant neoplasm of unspecified lung; F17.213 Nicotine dependence, cigarettes, with withdrawal; Z68.1 Body mass index [BMI] 19.9 or less, adult; I10 Essential (primary) hypertension; C80.1 Malignant (primary) neoplasm, unspecified; D63.0 Anemia in neoplastic disease; E87.6 Hypokalemia